=== PATIENT | male | born 1965 | race Hispanic/Latino ===

== ENCOUNTER 2017-01-17 08:54 | Inpatient (IN) | payer MEDICARE, OTHER ==
[~2017-01-17] VITALS: Ht 177.8 cm; Wt 94.9 kg
[2017-01-17] MEDS ORDERED: RT-ALBUTEROL/IPRATROPIUM 3 ML (DUONEB) VIAL INH ONE ×2 (09:00→10:00)
[2017-01-17] MEDS ORDERED: NS IV 1000 ML 1,000 ML IV ONE (09:04)
[2017-01-17 09:12] LABS: BASOPHILS % (AUTO) 0 % (0-10); EOSINOPHILS % (AUTO) 0 % (0-10); LYMPHOCYTES # (AUTO) 0.8 X 10^3 (1.0-4.0); LYMPHOCYTES % (AUTO) 7 % (12-44); MEAN CORPUSCULAR HEMOGLOBIN 27 PG (25-34); MEAN CORPUSCULAR HGB CONC 32 G/DL (32-36); MEAN CORPUSCULAR VOLUME 84 FL (80-99); MEAN PLATELET VOLUME 10.8 FL (7.4-10.4); MONOCYTES # (AUTO) 0.5 X 10^3 (0.0-1.0); MONOCYTES % (AUTO) 4 % (0-12); NEUTROPHILS # (AUTO) 9.7 X 10^3 (1.8-7.8); NEUTROPHILS % (AUTO) 89 % (42-75); PLATELET COUNT 275 10^3/uL (130-400); RED CELL DISTRIBUTION WIDTH 14.5 % (10.0-14.5)
[2017-01-17 09:35] LABS: BAND NEUTROPHILS 0 %; BASOPHILS % (MANUAL) 0 %; EOSINOPHILS % (MANUAL) 0 %; LYMPHOCYTES % (MANUAL) 5 %; NEUTROPHILS % (MANUAL) 89 %
--- NOTE | 2017-01-17 09:39 | ED General ---
General Chief Complaint: Respiratory Problems Stated Complaint: SOA Source of Information: Patient Exam Limitations: No Limitations History of Present Illness Time Seen by Provider: 08:56 Initial Comments This 51-year-old gentleman presents to the emergency room via EMS with complaints of worsening dyspnea over the past couple of days and hypoxia. His oxygen saturation was 84 percent on room air for EMS and improved to 96 percent on 4 L by nasal cannula. He reports having a nonproductive cough with some chills for the past 2 weeks along with fatigue. Shortness of breath started a few days ago and has worsened. EMS notes he was tachycardic with a heart rate over 100 and a respiratory rate of 22. Patient has nebulizer treatments at home but denies any history of asthma. He is status post lung transplant secondary to pulmonary hypertension. He takes antirejection medications. He denies any chest pain. Allergies and Home Medications Allergies Uncoded Allergies: Iodine contrast dye (Allergy, Unknown, 01/17/17) Constitutional: see HPI, chills EENTM: no symptoms reported Respiratory: see HPI Cardiovascular: see HPI Gastrointestinal: no symptoms reported Genitourinary: no symptoms reported Musculoskeletal: no symptoms reported Skin: no symptoms reported Psychiatric/Neurological: No Symptoms Reported Hematologic/Lymphatic: No Symptoms Reported Past Rbdzvrh-Wxhsof-Jvjolp Hx Surgeries HX Surgeries: Yes (bilateral lung transplant) Respiratory Hx Respiratory Disorders: No Cardiovascular Hx Cardiac Disorders: Yes (pulmonary hypertension status post lung transplant) Cardiac Disorders: Hypertension Neurological Hx Neurological Disorders: No Genitourinary Hx Genitourinary Disorders: No Gastrointestinal Hx Gastrointestinal Disorders: No Musculoskeletal Hx Musculoskeletal Disorders: No Endocrine Hx Endocrine Disorders: No HEENT HX ENT Disorders: No Cancer Hx Cancer: No Psychosocial Hx Psychiatric Problems: No Integumentary HX Skin/Integumentary Disorder: No Physical Exam Vital Signs Vital Sign - Last 12Hours 01/17/17 01/17/17 08:55 09:42 Temp 98.1 Pulse 109 Resp 27 B/P (MAP) 155/103 Pulse Ox 85 O2 Delivery Room Air O2 Flow Rate 3.00 Capillary Refill : General Appearance: No Apparent Distress, WD/WN HEENT: PERRL/EOMI, Normal ENT Inspection, Pharynx Normal Neck: Normal Inspection Respiratory: Lungs Clear, Normal Breath Sounds, Accessory Muscle Use, Other ( increased effort of breathing with expiratory phase. 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 Skin: Normal Color, Warm/Dry Focused Exam Lactic Acid Level Laboratory Tests Test 01/17/17 09:04 Lactic Acid Level 1.43 MMOL/L (0.50-2.00) Progress/Results/Core Measures Results/Orders Lab Results Laboratory Tests Test 01/17/17 09:04 Range/Units White Blood Count 11.0 4.3-11.0 10^3/uL Red Blood Count 6.30 H 4.35-5.85 10^6/uL Hemoglobin 17.0 13.3-17.7 G/DL Hematocrit 53 40-54 % Mean Corpuscular Volume 84 80-99 FL Mean Corpuscular Hemoglobin 27 25-34 PG Mean Corpuscular Hemoglobin Concent 32 32-36 G/DL Red Cell Distribution Width 14.5 10.0-14.5 % Platelet Count 275 130-400 10^3/uL Mean Platelet Volume 10.8 H 7.4-10.4 FL Neutrophils (%) (Auto) 89 H 42-75 % Lymphocytes (%) (Auto) 7 L 12-44 % Monocytes (%) (Auto) 4 0-12 % Eosinophils (%) (Auto) 0 0-10 % Basophils (%) (Auto) 0 0-10 % Neutrophils # (Auto) 9.7 H 1.8-7.8 X 10^3 Lymphocytes # (Auto) 0.8 L 1.0-4.0 X 10^3 Monocytes # (Auto) 0.5 0.0-1.0 X 10^3 Eosinophils # (Auto) 0.0 0.0-0.3 10^3/uL Basophils # (Auto) 0.0 0.0-0.1 10^3/uL Neutrophils % (Manual) 89 % Lymphocytes % (Manual) 5 % Monocytes % (Manual) 6 % Eosinophils % (Manual) 0 % Basophils % (Manual) 0 % Band Neutrophils 0 % Blood Morphology Comment NORMAL Sodium Level 138 135-145 MMOL/L Potassium Level 4.8 3.6-5.0 MMOL/L Chloride Level 102 98-107 MMOL/L Carbon Dioxide Level 24 21-32 MMOL/L Anion Gap 12 5-14 MMOL/L Blood Urea Nitrogen 18 7-18 MG/DL Creatinine 1.25 0.60-1.30 MG/DL Estimat Glomerular Filtration Rate 60 BUN/Creatinine Ratio 14 Glucose Level 131 H 70-105 MG/DL Lactic Acid Level 1.43 0.50-2.00 MMOL/L Calcium Level 9.8 8.5-10.1 MG/DL Magnesium Level 1.7 L 1.8-2.4 MG/DL Total Bilirubin 0.3 0.1-1.0 MG/DL Aspartate Amino Transf (AST/SGOT) 24 5-34 U/L Alanine Aminotransferase (ALT/SGPT) 30 0-55 U/L Alkaline Phosphatase 172 H 40-136 U/L Troponin I < 0.30 <0.30 NG/ML C-Reactive Protein High Sensitivity 3.63 H 0.00-0.50 MG/DL Total Protein 8.2 6.4-8.2 G/DL Albumin 4.0 3.2-4.5 G/DL Micro Results Microbiology 01/17/17 Influenza Types A,B Antigen (NAYAN) - Final, Complete My Orders Orders - CACHORRO NGO MD Chest Pa/Lat (2 View) (01/17/17 08:59) Cbc With Automated Diff (01/17/17 08:59) Comprehensive Metabolic Panel (01/17/17 08:59) Hs C Reactive Protein (01/17/17 08:59) Lactic Acid Analyzer (01/17/17 08:59) Magnesium (01/17/17 08:59) Troponin I (01/17/17 08:59) Blood Culture (01/17/17 08:59) Influenza A And B Antigens (01/17/17 08:59) Saline Lock/Iv-Start (01/17/17 08:59) Albuterol/Ipra Inhalation Soln (Duoneb I (01/17/17 09:00) Svn Sm Volume Nebulizer Rt-Rfs (01/17/17 08:59) Ns Iv 1000 Ml (Sodium Chloride 0.9%) (01/17/17 09:04) Manual Differential (01/17/17 09:04) Albuterol/Ipra Inhalation Soln (Duoneb I (01/17/17 10:00) Svn Sm Volume Nebulizer Rt-Rfs (01/17/17 09:56) Piperacillin Sodium/Tazobactam (Zosyn Vi (01/17/17 10:00) Medications Given in ED Current Medications Medications Dose Ordered Sig/Ghassan Route Start Time Stop Time Status Last Admin Dose Admin Albuterol/ Ipratropium 3 ml ONCE ONCE INH 01/17/17 09:00 01/17/17 09:04 DC 01/17/17 09:42 3 ML Albuterol/ Ipratropium 3 ml ONCE ONCE INH 01/17/17 10:00 01/17/17 10:01 DC 01/17/17 09:59 3 ML Piperacillin Sod/ Tazobactam Sod 4.5 gm/Sodium Chloride 100 ml @ 200 mls/hr ONCE ONCE IV 01/17/17 10:00 01/17/17 10:29 DC 01/17/17 10:16 200 MLS/HR Sodium Chloride 1,000 ml @ 0 mls/hr Q0M ONCE IV 01/17/17 09:04 01/17/17 09:05 DC 01/17/17 09:15 0 MLS/HR Vital Signs/I&O Vital Sign - Last 12Hours 01/17/17 01/17/17 01/17/17 08:55 09:42 09:59 Temp 98.1 Pulse 109 Resp 27 B/P (MAP) 155/103 Pulse Ox 85 96 96 O2 Delivery Room Air O2 Flow Rate 3.00 3.00 Progress Note : Time: 10:13 Progress Note Patient was found to have some interstitial perihilar lung markings suspicious for infectious etiology, viral more likely than bacterial. Patient is at high risk with his immunocompromised state and antibiotics were therefore initiated. Zosyn was selected as initial therapy. Patient still had some delayed expiration after initial DuoNeb treatment. A second DuoNeb treatment was administered. Influenza screen is still pending. ECG Initial ECG Impression Date: Jan 17, 2017 Initial ECG Impression Time: 08:59 Initial ECG Rate: 114 Initial ECG Rhythm: S.Tach Initial ECG Intervals: Normal Initial ECG Impression: Normal Comment Sinus tachycardia with nonspecific T-wave changes. No ST elevation or depression. No abnormal intervals or axis deviation. Diagnostic Imaging Diagonstic Imaging: Xray Plain Films/CT/US/NM/MRI: chest Comments Chest x-ray viewed by me and report reviewed. See report below: NAME: SHEMAR SERNA [facility] REC#: [id number] PT STATUS: REG ER : 1965 PHYSICIAN: CACHORRO NGO MD ADMIT DATE: 01/17/17/ER Draft Date of Exam:01/17/17 CHEST PA/LAT (2 VIEW) INDICATION: Shortness of breath, worsening in severity. History of lung transplant. FINDINGS: Sternal wires midline. Lung volumes symmetric. There is some thickening of the central airways greater right than left which may reflect an element of bronchitis or viral inflammation. No airspace or alveolar consolidation. No effusion or pneumothorax. No free air beneath the diaphragms. IMPRESSION: Right greater than left perihilar interstitial and airway thickening. No alveolar consolidation, pleural fluid, or pneumothorax. No failure pattern. Dictated on workstation # [id number] Dict: 01/17/1738 Trans: 01/17/17 0940 [id number] Interpreted by: AMA BUSTAMANTE Departure Communication Time/Spoke to Admitting Phy: 10:25 Communication Case reviewed with Dr. Lizarraga. She is agreeable to admission for treatment of pneumonia and requests a consultation with Dr. Gauthier. Time/Spoke to Consulting Physi: 10:30 Communication/Consulting Case was reviewed with Dr. Gauthier. He is agreeable to consultation. He agrees with admission and treatment for suspected pneumonia and sepsis. He suggests Zosyn and vancomycin as initial antibiotic therapy as patient is immunosuppressed. He does not feel steroids are necessary at this time as patient had a reasonable response to nebulizer treatments. Impression Impression: Primary Impression: Sepsis Qualified Codes: A41.9 - Sepsis, unspecified organism Additional Impressions: Pneumonia Qualified Codes: J18.1 - Lobar pneumonia, unspecified organism Respiratory failure Qualified Codes: J96.01 - Acute respiratory failure with hypoxia Bronchospasm Disposition: ADMITTED INPATIENT Condition: Improved Decision to Admit Reason: Admit from ER (General) Decision to Admit/Date: Jan 17, 2017 Time/Decision to Admit Time: 09: CACHORRO NGO MD Jan 17, 2017 09:39
[2017-01-17 09:40] LABS: ALANINE AMINOTRANSFERASE 30 U/L (0-55); ANION GAP 12 MMOL/L (5-14); ASPARTATE AMINO TRANSFERASE 24 U/L (5-34); BILIRUBIN,TOTAL 0.3 MG/DL (0.1-1.0); BLOOD UREA NITROGEN 18 MG/DL (7-18); BUN/CREATININE RATIO 14; CALCIUM 9.8 MG/DL (8.5-10.1); CARBON DIOXIDE 24 MMOL/L (21-32); CHLORIDE 102 MMOL/L (98-107); CREATININE SERUM 1.25 MG/DL (0.60-1.30); GFR ESTIMATED 60; GLUCOSE 131 MG/DL (70-105); MAGNESIUM 1.7 MG/DL (1.8-2.4); POTASSIUM 4.8 MMOL/L (3.6-5.0); SODIUM 138 MMOL/L (135-145); TOTAL PROTEIN 8.2 G/DL (6.4-8.2); hs C REACTIVE PROTEIN 3.63 MG/DL (0.00-0.50)
[2017-01-17 09:45] LABS: TROPONIN I < 0.30 NG/ML (<0.30)
[2017-01-17] MEDS ORDERED: PIPERACILLIN SODIUM/TAZOBACTAM 4.5 GM in NS (IVPB) 100 ML IV ONE (10:00)
[2017-01-17] MEDS ORDERED: LABE200T3 PO (11:05)
[2017-01-17] MEDS ORDERED: ASPI-983 PO (11:05)
[2017-01-17] MEDS ORDERED: FURO40TA4 PO (11:05)
[2017-01-17] MEDS ORDERED: MAGN400T6 PO (11:05)
[2017-01-17] MEDS ORDERED: TACR0.5C6 PO (11:05)
[2017-01-17] MEDS ORDERED: FLDR.1T PO (11:05)
[2017-01-17] MEDS ORDERED: PRED5TAB PO (11:05)
[2017-01-17] MEDS ORDERED: TACR0.5C PO (11:05)
[2017-01-17] MEDS ORDERED: SULF-222 PO (11:05)
[2017-01-17] MEDS ORDERED: ESOM40CA52 PO (11:05)
[2017-01-17] MEDS ORDERED: FOLI1TAB24 PO (11:05)
[2017-01-17] MEDS ORDERED: VORI200T10 PO (11:05)
[2017-01-17] MEDS ORDERED: AMLO5TAB2 PO (11:05)
[2017-01-17] MEDS ORDERED: CLON0.1T PO (11:05)
[2017-01-17] MEDS ORDERED: MULT-35 PO (11:06)
[2017-01-17] MEDS ORDERED: GABA-486 PO (11:06)
[2017-01-17] MEDS ORDERED: METO50TA2 PO (11:06)
--- NOTE | 2017-01-17 11:25 | History & Physical-Hospitalist ---
HPI History of Present Illness: HPI/Chief Complaint CC: Dyspnea w/fever HPI: This is a 51-year-old -[place] male of [facility] with a past medical history of bilateral lung transplants in [place] that was last seen by that surgeon in September 2016 with pulmonary function tests that appear to be slightly abnormal that presents to the ER with shortness of breath and fever for past 2 days. He is found to have a possible viral pneumonia versus bacterial Early pneumonia on chest x-ray and his overall clinical status requiring admission to the hospital for close monitoring and pulmonary consultation. Chart Review: Neutrophil 9.7, CRP 3.6, X-ray may be viral but pt had cultures and placed on Zosyn. In [place] pt states he had pulmonary tests that were concerning? Pt has viral or bacterial pneumonia so will place on abx and monitor closely Scribed by Teodoro Young under the direct supervision of Dr. Lizarraga. Patient feels much better since placing oxygen on and denies any sig cough. Source: patient, RN/MD Date Seen 01/17/17 Attending Physician Monse Lizarraga Michele R Aprn Referring Physician Date of Admission Jan 17, 2017 at 10:46 Home Medications & Allergies Home Medications Reviewed patient Home Medication Reconciliation Form Allergies Allergies Uncoded Allergies Iodine contrast dye ( Allergy, Unknown, 01/17/17) Past Genhipo-Ogktjt-Keetjm Hx Patient Social History Marrital Status: single Employed/Student: unemployed Alcohol Use: Denies Use Recreational Drug Use: No Smoking Status: Never a Smoker 2nd Hand Smoke Exposure: No Recent Foreign Travel: No Contact w/other who traveled: No Recent Hopitalizations: No Recent Infectious Disease Expo: No Seasonal Allergies Seasonal Allergies: No Surgeries HX Surgeries: Yes (bilateral lung transplant) Surgeries: Lobectomy (lung transplant) Respiratory Hx Respiratory Disorders: Yes Respiratory Disorders: Asthma Cardiovascular Hx Cardiovascular Disorders: Yes (pulmonary hypertension status post lung transplant) Cardiac Disorders: Hypertension Neurological Hx Neurological Disorders: No Genitourinary Hx Genitourinary Disorders: No Gastrointestinal Hx Gastrointestinal Disorders: No Musculoskeletal Hx Musculoskeletal Disorders: No Endocrine Hx Endocrine Disorders: No HEENT HX ENT Disorders: No Cancer Hx Cancer: No Psychosocial Hx Psychiatric Problems: No Integumentary HX Skin/Integumentary Disorder: No Blood Transfusions Hx Blood Disorders: No Review of Systems Constitutional: see HPI, dizziness, fever, weakness EENTM: no symptoms reported Respiratory: cough, short of breath, wheezing Cardiovascular: no symptoms reported Gastrointestinal: no symptoms reported Genitourinary: no symptoms reported Musculoskeletal: no symptoms reported Skin: no symptoms reported Psychiatric/Neurological: No Symptoms Reported All Other Systems Reviewed Negative Unless Noted: Yes Physical Exam Physical Exam Vital Signs Vital Sign - Last 12Hours 01/17/17 01/17/17 08:55 09:42 Temp 98.1 Pulse 109 Resp 27 B/P (MAP) 155/103 Pulse Ox 85 O2 Delivery Room Air O2 Flow Rate 3.00 Capillary Refill : Less Than 3 Seconds General Appearance: No Apparent Distress, WD/WN Eyes: Bilateral Eye Normal Inspection, Bilateral Eye PERRL HEENT: PERRL/EOMI, Normal ENT Inspection, Pharynx Normal Neck: Full Range of Motion, Normal Inspection, Non Tender, Supple, Carotid Bruit Respiratory: Chest Non Tender, Lungs Clear, No Accessory Muscle Use, No Respiratory Distress, Decreased Breath Sounds Cardiovascular: Regular Rate, Rhythm, No Edema, No Gallop, No JVD, No Murmur, Normal Peripheral Pulses Gastrointestinal: Normal Bowel Sounds, No Organomegaly, No Pulsatile Mass, Non Tender, Soft Back: Normal Inspection, No CVA Tenderness, No Vertebral Tenderness Extremity: Normal Capillary Refill, Normal Inspection, Normal Range of Motion, Non Tender, No Calf Tenderness, No Pedal Edema Neurologic/Psychiatric: Alert, Oriented x3, No Motor/Sensory Deficits, Normal Mood/Affect Skin: Normal Color, Warm/Dry Lymphatic: No Adenopathy Results Results/Procedures Lab Laboratory Tests 01/17/17 09:04 Assessment/Plan Admission Diagnosis assessment: Early pneumonia either viral versus bacterial covering with antibiotics of Bryan due to immunosuppression Bilateral lung transplant Asthma? Hypoxia Hypertension Assessment and Plan Plan: Bryan Shepard Pulmonary consultation Reconcile all home meds and held immunosuppressive medication for today Check labs and chest x-ray tomorrow and likely will discharge MONSE LIZARRAGA DO Jan 17, 2017 11:25
[2017-01-17 11:30] VITALS: BP 143/85
[2017-01-17] MEDS ORDERED: VANCOMYCIN 2000 MG/NS 500 ML IVPB IV SCH ×2 (12:00)
[2017-01-17] MEDS: NS IV 1000 ML 1,000 ML IV SCH (12:26)
[2017-01-17] MEDS: cloNIDine 0.1 MG (CATAPRES) TAB PO SCH ×2 (14:25→20:31)
[2017-01-17] MEDS: FLUDROCORTISONE 0.1 MG (FLORINEF) TAB PO SCH (14:26)
[2017-01-17] MEDS: TRIM/SULFAMETH 160/800 (SEPTRA DS) TAB PO SCH (14:26)
[2017-01-17 15:20] VITALS: BP 132/81
[2017-01-17] MEDS ORDERED: RT-ALBUTEROL/IPRATROPIUM 3 ML (DUONEB) VIAL INH PRN (16:00)
[2017-01-17] MEDS: PIPERACILLIN/TAZOBACTAM 4.5 GM/NS 100 ML IVPB IV SCH ×2 (16:42)
[2017-01-17] MEDS: VORICONAZOLE 200 MG TAB (VFEND) NON-FORMULARY PO SCH ×2 (16:42→23:06)
[2017-01-17] MEDS: RT-ALBUTEROL/IPRATROPIUM 3 ML (DUONEB) VIAL INH SCH ×2 (18:54→22:24)
[2017-01-17 19:25] VITALS: BP 131/82
[2017-01-17] MEDS: FUROSEMIDE 40 MG (LASIX) TAB PO SCH (20:31)
[2017-01-17] MEDS: GABAPENTIN 100 MG (NEURONTIN) CAP PO SCH (20:31)
[2017-01-17] MEDS: meTOprolol TARTRATE 50 MG (LOPRESSOR) TAB PO SCH (20:31)
[2017-01-17] MEDS: MAGNESIUM OXIDE (MAG-OX)400 MG TAB PO SCH (20:31)
[2017-01-17 23:59] VITALS: BP 110/78
[2017-01-18] MEDS ORDERED: VANCOMYCIN 1500 MG/NS 500 ML IVPB IV SCH ×2
[2017-01-18] MEDS: PIPERACILLIN/TAZOBACTAM 4.5 GM/NS 100 ML IVPB IV SCH ×6 (01:02→16:35)
[2017-01-18] MEDS: RT-ALBUTEROL/IPRATROPIUM 3 ML (DUONEB) VIAL INH SCH ×6 (02:03→22:12)
[2017-01-18 03:54] VITALS: BP 123/82
[2017-01-18 05:03] LABS: BASOPHILS # (AUTO) 0.1 10^3/uL (0.0-0.1); BASOPHILS % (AUTO) 1 % (0-10); EOSINOPHILS # (AUTO) 0.4 10^3/uL (0.0-0.3); EOSINOPHILS % (AUTO) 5 % (0-10); LYMPHOCYTES # (AUTO) 1.7 X 10^3 (1.0-4.0); LYMPHOCYTES % (AUTO) 20 % (12-44); MEAN CORPUSCULAR HEMOGLOBIN 27 PG (25-34); MEAN CORPUSCULAR HGB CONC 32 G/DL (32-36); MEAN CORPUSCULAR VOLUME 87 FL (80-99); MEAN PLATELET VOLUME 10.6 FL (7.4-10.4); MONOCYTES # (AUTO) 0.9 X 10^3 (0.0-1.0); MONOCYTES % (AUTO) 11 % (0-12); NEUTROPHILS # (AUTO) 5.1 X 10^3 (1.8-7.8); NEUTROPHILS % (AUTO) 63 % (42-75); PLATELET COUNT 239 10^3/uL (130-400); RED BLOOD COUNT 5.57 10^6/uL (4.35-5.85); RED CELL DISTRIBUTION WIDTH 14.9 % (10.0-14.5); WHITE BLOOD COUNT 8.2 10^3/uL (4.3-11.0)
[2017-01-18 05:25] LABS: ALBUMIN 3.3 G/DL (3.2-4.5); BILIRUBIN,TOTAL 0.3 MG/DL (0.1-1.0); CALCIUM 8.9 MG/DL (8.5-10.1); CREATININE SERUM 1.26 MG/DL (0.60-1.30); POTASSIUM 4.6 MMOL/L (3.6-5.0); TOTAL PROTEIN 6.6 G/DL (6.4-8.2)
[2017-01-18] MEDS: NS IV 1000 ML 1,000 ML IV SCH ×2 (06:22→07:58)
[2017-01-18] MEDS: MULTIVIT W/MINERALS TAB (THERAGRAN M) PO SCH (06:22)
[2017-01-18] MEDS: PANTOPRAZOLE 40 MG (PROTONIX) TAB PO SCH (06:22)
--- NOTE | 2017-01-18 06:54 | Pulmonary Consultation ---
History of Present Illness History of Present Illness Date of Consultation 01/18/17 06:49 Date of Admission History of Present Illness 51yo AAM with hx of bilateral lung transplant presented to ED secondary to worsening fever over the last 2-3 days. CXR shows bilateral infiltration. He was placed on zosyn and admitted to 4th floor. I am consulted for pulmonary management. Allergies and Home Medications Allergies Coded Allergies: Iodinated Contrast Media - Oral and (Unverified Allergy, Unknown, 01/17/17) Home Medications Amlodipine Besylate 5 Mg Tablet, 5 MG PO DAILY, (Reported) Aspirin 81 Mg Tablet.dr, 81 MG PO DAILY, (Reported) Clonidine HCl 0.1 Mg Tablet, 0.1 MG PO TID, (Reported) LAST FILLED #270 08-25-16 Esomeprazole Magnesium 40 Mg Capsule.dr, 40 MG PO DAILY, (Reported) Fludrocortisone Acetate 0.1 Mg Tab, 0.1 MG PO MoWeFr, (Reported) Folic Acid 1 Mg Tablet, 1 MG PO DAILY, (Reported) Furosemide 40 Mg Tablet, 40 MG PO BID, (Reported) LAST FILLED #180 08-25-16 Gabapentin 100 Mg Capsule, 100 MG PO BID, (Reported) Labetalol HCl 200 Mg Tablet, 200 MG PO BID, (Reported) Magnesium Oxide 400 Mg Tablet, 400 MG PO BID, (Reported) LAST FILLED #180 08-25-16 Metoprolol Tartrate 50 Mg Tablet, 50 MG PO BID, (Reported) LAST FILLED 08-25-16 #180 Multivitamin 1 Each Tablet, 1 TAB PO DAILY, (Reported) Prednisone 5 Mg Tablet, 5 MG PO DAILY, (Reported) Sulfamethoxazole/Trimethoprim 1 Each Tablet, 1 TAB PO MoWeFr, (Reported) Tacrolimus 0.5 Mg Capsule, 1 MG PO DAILY, (Reported) TAKES 2 (0.5MG) CAPSULES IN THE MORNING Tacrolimus 0.5 Mg Capsule, 0.5 MG PO HS, (Reported) Voriconazole 200 Mg Tablet, 200 MG PO BID, (Reported) LAST FILLED #60 11-30-16 Past Hptbxxp-Vmtckm-Tqjtgu Hx Patient Social History Alcohol Use: Denies Use Recreational Drug Use: No Smoking Status: Never a Smoker 2nd Hand Smoke Exposure: No Recent Foreign Travel: No Contact w/Someone Who Travel: No Recent Infectious Disease Expo: No Recent Hopitalizations: No Physical Abuse Screen: No Sexual Abuse: No Immunizations Up To Date Date of Pneumonia Vaccine: Sep 18, 2014 Seasonal Allergies Seasonal Allergies: No Surgeries HX Surgeries: Yes (bilateral lung transplant) Surgeries: Lobectomy (lung transplant) Respiratory Hx Respiratory Disorders: Yes Respiratory Disorders: Pneumonia Cardiovascular Hx Cardiac Disorders: Yes (pulmonary hypertension status post lung transplant) Cardiac Disorders: Hypertension Neurological Hx Neurological Disorders: No Reproductive System Sexually Transmitted Disease: No HIV/AIDS: No Genitourinary Hx Genitourinary Disorders: No Gastrointestinal Hx Gastrointestinal Disorders: No Gastrointestinal Disorders: Gastroesophageal Reflux Musculoskeletal Hx Musculoskeletal Disorders: No Endocrine Hx Endocrine Disorders: No HEENT HX ENT Disorders: No Loss of Vision: Denies Hearing Impairment: Denies Cancer Hx Cancer: No Psychosocial Hx Psychiatric Problems: No Integumentary HX Skin/Integumentary Disorder: No Blood Transfusions Hx Blood Disorders: No Family Medical History Family Medial History: Asthma 19 MOTHER Diabetes mellitus 19 FATHER Hypercholesterolemia 19 FATHER 19 MOTHER G8 BROTHER G8 SISTER Hypertension 19 FATHER 19 MOTHER G8 BROTHER G8 SISTER Thyroid disease G8 SISTER Review of Systems Constitutional: Malaise, Weakness, No: Chills, Fever, Other, Sweats Eyes: No: Conjunctivae inflammation, Eyelid inflammation, Other, Pain, Redness , Vision change Respiratory: Cough, SOB with excertion, Shortness of breath Cardiovascular: No: Chest Pain, Edema, Lt Headedness, Orthopnea, Other, Palpitations, Paroxysmal Noc. Dyspnea Gastrointestinal: No: Abdominal Pain, Constipation, Diarrhea, Hematochezia, Melena, Nausea, Other, Vomiting Neurological: Weakness Exam Exam Vital Signs Date Time Temp Pulse Resp B/P (MAP) Pulse Ox O2 Delivery O2 Flow Rate FiO2 01/18/17 03:54 97.2 85 16 123/82 97 Nasal Cannula 2.00 01/18/17 02:03 94 2.00 01/18/17 01:00 79 01/17/17 23:59 96.5 82 12 110/78 97 Nasal Cannula 2.00 01/17/17 22:24 94 2.00 01/17/17 21:00 Nasal Cannula 2.50 01/17/17 19:25 96.2 89 20 131/82 95 Nasal Cannula 2.00 01/17/17 19:00 94 01/17/17 18:54 95 2.00 01/17/17 15:20 97.5 97 18 132/81 93 Nasal Cannula 3.00 01/17/17 14:00 94 01/17/17 13:00 3.00 01/17/17 11:31 97.6 104 20 99 3.00 01/17/17 11:30 97.3 98 24 143/85 93 Nasal Cannula 3.00 01/17/17 09:59 96 3.00 01/17/17 09:42 96 3.00 01/17/17 08:55 98.1 109 27 155/103 85 Room Air I & O 01/18/17 07:00 Intake Total 3725 ml Output Total 3325 ml Balance 400 ml General Appearance: No Apparent Distress, WD/WN HEENT: PERRL/EOMI, Normal ENT Inspection, Pharynx Normal Neck: Full Range of Motion, Normal Inspection, Non Tender, Supple, Carotid Bruit Respiratory: Chest Non Tender, Lungs Clear, No Accessory Muscle Use, No Respiratory Distress, Decreased Breath Sounds Cardiovascular: Regular Rate, Rhythm, No Edema, No Gallop, No JVD, No Murmur, Normal Peripheral Pulses Capillary Refill: Less Than 3 Seconds Extremity: Normal Capillary Refill, Normal Inspection, Normal Range of Motion, Non Tender, No Calf Tenderness, No Pedal Edema Neurologic/Psychiatric: Alert, Oriented x3, No Motor/Sensory Deficits, Normal Mood/Affect Skin: Normal Color, Warm/Dry Lymphatic: No Adenopathy Results Lab Laboratory Tests 01/17/17 09:04 01/18/17 04:38 Assessment/Plan Assessment/Plan PNeumonia with immunosuppression -Continue Zosyn vanco for now -await gan cultures hx of lung transplant Clinical Quality Measures DVT/VTE Risk/Contraindication: Risk Factor Score Per Nursin RFS Level Per Nursing on Admit: 4+=Very High RUSTAM HOPE DO Jan 18, 2017 06:54
--- NOTE | 2017-01-18 07:33 | Diagnostic Imaging Report ---
CLINICAL INDICATION: Patient with shortness of air and pneumonia. EXAM: Chest x-ray PA and lateral views. COMPARISONS: Chest x-ray dated 02/06/2017 at 0941 hrs. FINDINGS: There is stable increased lung markings in the bilateral perihilar regions which may represent atelectasis versus infiltrate. There is no pleural effusion or pneumothorax. Stable elevation right hemidiaphragm. There is diffuse sclerotic bone densities seen throughout the visualized axial skeleton. Old healed fracture deformity of the lateral right T8 rib is suspected. Pulmonary vasculature and cardiac silhouette is within normal limits. Stable postop changes to the chest. The remainder of this exam shows no significant interval change compared to the prior study of comparison. IMPRESSION: 1: Stable mild atelectasis versus infiltrate in the bilateral perihilar regions. 2: There is diffuse bony sclerosis of the visualized axial skeleton. These findings may be seen with diffuse osseous metastatic disease, hyperparathyroidism, or osteopetrosis. Clinical correlation is suggested. Dictated by: Dictated on workstation # [id number]
[2017-01-18 08:00] VITALS: BP 134/87
[2017-01-18] MEDS: FOLIC ACID 1 MG TAB PO SCH (08:02)
[2017-01-18] MEDS: FUROSEMIDE 40 MG (LASIX) TAB PO SCH ×2 (08:02→20:02)
[2017-01-18] MEDS: GABAPENTIN 100 MG (NEURONTIN) CAP PO SCH ×2 (08:02→20:02)
[2017-01-18] MEDS: VORICONAZOLE 200 MG TAB (VFEND) NON-FORMULARY PO SCH ×2 (08:02→20:02)
[2017-01-18] MEDS: meTOprolol TARTRATE 50 MG (LOPRESSOR) TAB PO SCH ×2 (08:02→20:02)
[2017-01-18] MEDS: amLODIPine 5 MG (NORVASC) TAB PO SCH (08:02)
[2017-01-18] MEDS: MAGNESIUM OXIDE (MAG-OX)400 MG TAB PO SCH ×2 (08:03→20:02)
[2017-01-18] MEDS: ASPIRIN E.C. 81 MG (ECOTRIN) TAB PO SCH (08:03)
[2017-01-18] MEDS: predniSONE 5 MG TAB PO SCH (08:03)
[2017-01-18] MEDS: cloNIDine 0.1 MG (CATAPRES) TAB PO SCH ×3 (08:07→20:02)
--- NOTE | 2017-01-18 10:22 | Progress Note-Hospitalist ---
Progress Note HPI/CC on Admission CC: Dyspnea w/fever HPI: This is a 51-year-old -[place] male of [facility] with a past medical history of bilateral lung transplants in [place] that was last seen by that surgeon in September 2016 with pulmonary function tests that appear to be slightly abnormal that presents to the ER with shortness of breath and fever for past 2 days. He is found to have a possible viral pneumonia versus bacterial Early pneumonia on chest x-ray and his overall clinical status requiring admission to the hospital for close monitoring and pulmonary consultation. Chart Review: Neutrophil 9.7, CRP 3.6, X-ray may be viral but pt had cultures and placed on Zosyn. In [place] pt states he had pulmonary tests that were concerning? Pt has viral or bacterial pneumonia so will place on abx and monitor closely Scribed by Teodoro Young under the direct supervision of Dr. Lizarraga. Patient feels much better since placing oxygen on and denies any sig cough. Progress Notes/Assess & Plan Date Seen 01/18/17 Admission Dx/Process Assessment: Early pneumonia either viral versus bacterial covering with antibiotics of Zosyn due to immunosuppression Bilateral lung transplant Asthma? Hypoxia Hypertension Diagonsis/Assessment & Plan Chart Review: No fever, Vitals stable, WBC normal 8.2 CMP normal, Repeat CXR B/ L atelectasis in perihilar region. Pharmacy Review: Pt was a soft admission. Patient Interview: Pt states he does not want to be DC today. Pt states the medication is helping him. Pt states he does not have home O2. Pt will be tested for home O2. Pt states he is wanting to stay at hospital and he knows he has something wrong with him. Pt states he does not want to go home and then come back to [facility] the next day. Pt states he is getting green discharge. Physical exam was stable. Pt states he has ate solid food today for the first time in 5 days. Pt states another doctor told him he needs to stay 2 more days. Scribed by Teodoro Young under the direct supervision of Dr. Lizarraga. No fever, vital signs stable, pleasant, improved, wearing O2 Regular rate and rhythm, clear to auscultation bilaterally but diminished in the bases but much improved no wheezing is noted No edema and normal range of motion Laboratory Tests 01/18/17 04:38 Assessment: Early pneumonia bilateral bases Bilateral lung transplant 6 yrs ago Asthma Hypoxia now requiring 6liters of O2 for home use continuously Hypertension Plan: Bryan Shepard Pulmonary consultation appreciated Check labs and chest x-ray tomorrow and likely will discharge Home O2 orders placed ROMY LIZARRAGA DO Jan 18, 2017 10:22
[2017-01-18] MEDS ORDERED: TROUGH ORDER-PHARMACY XX NR (11:00)
--- NOTE | 2017-01-18 11:23 | Physical Therapy Evaluation ---
PT Evaluation-General Medical Diagnosis Admission Date Jan 17, 2017 at 10:46 Medical Diagnosis: sepsis/pneumonia Onset Date: Jan 17, 2017 Therapy Diagnosis Therapy Diagnosis: debility Height/Weight Height (Feet): 5 Height (Inches): 10.00 Weight (Pounds): 209 Weight (Ounces): 3.0 Precautions Precautions/Isolations: Standard Precautions Referral Physician: Zia Reason for Referral: Evaluation/Treatment Medical History Pertinent Medical History: HTN Additional Medical History pulmonary HTN with bilateral lung transplant x 6 yrs Current History 2 wks of increase cough with dyspnea and hypoxia SAO2 84% on RA with EMS with increase to 96% on 4L Reviewed History: Yes Social History Home: Single Level Current Living Status: Spouse Prior/Core FIM Prior Level of Function Functional [place] Measure 0=Not Assessed/NA 4=Minimal Assistance 1=Total Assistance 5=Supervision or Setup 2=Maximal Assistance 6=Modified [place] 3=Moderate Assistance 7=Complete [place] Bed Mobility: 7 Transfers (B,C,W/C) (FIM): 7 Gait: 7 Locomotion: 7 PT Evaluation-Current Subjective Patient agrees to PT. Pain Numeric Pain Scale: 0-No Pain Location: No Pain Reported Objective Patient Orientation: Normal For Age Problem Solving: Good Attachments: Oxygen (3L HF NC), IV ROM/Strength ROM Lower Extremities bilateral LE WFL Strenght Lower Extremities bilateral LE WFL Integumentary/Posture Integumentary grossly intact Bowel Incontinence: No Bladder Incontinence: No Posture WNL Neuromuscular (Tone, Coordination, Reflexes) grossly intact Sensory Vision: Functional Hearing: Functional Sensation Right Lower Extremit: Intact Sensation Left Lower Extremity: Intact Transfers Functional [place] Measure 0=Not Assessed/NA 4=Minimal Assistance 1=Total Assistance 5=Supervision or Setup 2=Maximal Assistance 6=Modified [place] 3=Moderate Assistance 7=Complete [place] Transfers (B, C, W/C) (FIM): 7 Scootin Rollin Supine to/from Sit: 7 Sit to/from Stand: 7 Gait Mode of Locomotion: Walk Anticipated Mode of Locomotion: Walk Gait (FIM): 7 Distance (FIM): 3=150 ft Distance: 400' Gait Level of Assist: 7 Gait Assistive Device: None Comments/Gait Description safe and functional with O2 3L NC HF per RT Balance Sitting Static: Normal Sitting Dynamic: Normal Standing Static: Normal Standing Dynamic: Normal Assessment/Needs 51 y.o. male, is currently at [facility] with all gross motor skills and does not require skilled PT at this time. Education with patient on use of O2 tank to ambulate PRN in hallway given with patient demonstrating good knowledge of use. Dr. Lizarraga notified of findings. Rehab Potential: Good PT Plan Treatment/Plan Treatment Plan: Discontinue PT, goals met Pt/Family Agrees w/Plan: Yes Safety Risks/Education Patient Education: Safety Issues (O2 tank/regulator use) Teaching Recipient: Patient Teaching Methods: Demonstration, Discussion Response to Teaching: Verbalize Understanding, Return Demonstration Discharge Recommendations Therapy D/C Recommendations: Home w/ Family Support Time/GCodes Time In: 1050 Time Out: 1110 Total Billed Treatment Time: 20 Total Billed Treatment 1 visit EVModC 20 min G Codes Necessary: No RONALD GASPAR PT Jan 18, 2017 11:23
[2017-01-18 12:00] VITALS: BP 112/71
--- NOTE | 2017-01-18 12:25 | Occupational Therapy Eval ---
OT Evaluation-General/PLF Medical Diagnosis Admission Date Jan 17, 2017 at 10:46 Medical Diagnosis: sepsis/pneumonia Onset Date: Jan 17, 2017 Therapy Diagnosis Therapy Diagnosis: debility Height/Weight Height (Feet): 5 Height (Inches): 10.00 Weight (Pounds): 209 Weight (Ounces): 3.0 Precautions Precautions/Isolations: Standard Precautions Safety Interventions: Reorient-PRN Referral Physician: Zia Medical History Pertinent Medical History: HTN Additional Medical History bilateral lung transplant, pulmonary hypertension Reviewed History: Yes Social History Home: Single Level Current Living Status: Spouse Entry Into Home: Stairs With Railing Steps Into Home: 5 ADL-Prior Level of Function ADL PLOF Comments Pt reports being independent with ADLs and mobility. DME/Equipment: Tub/Shower OT Current Status Subjective Pt in bed, agrees to treatment. Pt has no c/o pain. States he is feeling better today. Mental Status/Objective Patient Orientation: Person, Place, Situation Attachments: IV Current Upper Extremity ROM Grossly WFL Upper Extremity Coordination Intact Upper Extremity Sensation Intact per pt report. Upper Extremity Strength Grossly WFL ADL-Treatment ADL-Current Pt supine to sit independently. Pt participated in UE assessment while seated EOB. Pt sit to stand independently. Pt demonstrated ability to safely perform transfer without assistance or AD. Pt states he was able to complete LE dressing without assistance. Pt states he is not having any difficulty with ADLs or transfers at this time. Pt declined to shower, states he will complete later when his gets here. Pt denied questions or concerns. Pt in bed with needs met after session. Functional [place] Measure 0=Not Assessed/NA 4=Minimal Assistance 1=Total Assistance 5=Supervision or Setup 2=Maximal Assistance 6=Modified [place] 3=Moderate Assistance 7=Complete IndependenceIRFPAI Quality Coding Scale 6 Independent with activity with or without an assistive device 5 Patient requires set up or clean up by helper. Patient completes activity by themselves 4 Supervision or touching assist (CGA). [place] provide cues , steadying assist 3 The helper provides less than half the effort to complete the activity 2 The helper provides more than half the effort to complete the activity 1 Dependent. The helper does all the effort to complete an activity 7 Patient refused to complete or attempt activity 9 The patient did not perform the activity before the current illness or injury 88 Not attempted due to Medical conditions or safety concerns Eating (FIM): 7 (By pt report) Lower Body Dressing (FIM): 6 Transfers (B, C, W/C) (FIM): 7 OT Education/Plan Problem List/Assessment Assessment: No Skilled OT Needs ID'd Pt admitted secondary to pneumonia/sepsis. Pt demonstrates functional strength and is able to complete ADLs and transfer without assistance. Pt has no questions or concerns regarding ADLs or home safety. No further skilled OT intervention indicated at this time. D/c OT Discharge Recommendations Plan/Recommendations: Discontinue OT Treatment Plan/Plan of Care Treatment,Training & Education: No Rehab Potential: Good Time/GCodes Start Time: 11:40 Stop Time: 11:55 Total Time Billed (hr/min): 15 Billed Treatment Time 1 visit, HAYES(15minutes) LUZ HEATON OT Jan 18, 2017 12:25
--- NOTE | 2017-01-18 14:04 | Physician Query ---
PQ-Uncertain Diagnosis Admission/Discharge Admission Date: Jan 17, 2017 at 10:46 Discharge Date: The medical record reflects the following clinical scenario: History/Risk Factors: Pneumonia Bilateral lung transplants Clinical Findings: T98.1,pulse 109, Resp 27,BP 155/103 O2 sats 85%, WBC11.0, lactic acid 1.43. Per Dr. Carlos, "patient was diagnosed with sepsis because of 2 SIRS criteria with respiratory failure (resp rate of 22 with hypoxia) and tachycardia along with source of infection." Treatment: IV Zosyn and IV Vancomycin Question: Is Sepsis a clinically valid diagnosis? Sepsis was documented in the 01/17 ED record with no further documentation in the medical record. Please document a response below. PHYSICIAN RESPONSE Diagnosis clinically valid: Yes, Conditon resolved Please remember a lack of response to the above will prompt a phone page by CDI/ coding staff. In responding to this query, please exercise your independent professional judgment. The purpose of this communication is to more accurately reflect the complexity of your patients condition. The fact that a question is asked does not imply that any particular answer is desired or expected. Thank you for your timely response to this clarification. Requestors name: Dulce Cox [facility] Phone # ext [phone] or [phone] THIS PHYSICIAN QUERY FORM IS A PERMANENT PART OF THE MEDICAL RECORD DULCE COX Jan 18, 2017 14:04 ROMY SOUZA DO Jan 18, 2017 14:29
--- NOTE | 2017-01-18 14:17 | Physician Query ---
PQ-Uncertain Diagnosis Admission/Discharge Admission Date: Jan 17, 2017 at 10:46 Discharge Date: The medical record reflects the following clinical scenario: History/Risk Factors: Pneumonia Bilateral lung transplants Clinical Findings: Accessory muscle use, tachypnea, resp 27, 02 sats 85% Treatment: 2 DuoNeb treatments were administered Nasal cannula 02 flow 3.00 liters Question: Is Acute respiratory failure with hypoxia a clinically valid diagnosis? Acute respiratory failure with hypoxia was documented in the 01/[address] Carlos with no further documentation in the medical record. Please document a response below. If agree with diagnosis of acute respiratory failure with hypoxia, please clarify if it was or was not related to sepsis? PHYSICIAN RESPONSE Diagnosis clinically valid: Yes, Conditon resolved Please remember a lack of response to the above will prompt a phone page by CDI/ coding staff. In responding to this query, please exercise your independent professional judgment. The purpose of this communication is to more accurately reflect the complexity of your patients condition. The fact that a question is asked does not imply that any particular answer is desired or expected. Thank you for your timely response to this clarification. Requestors name: Dulce Cox [facility] Phone # ext [phone] or [phone] THIS PHYSICIAN QUERY FORM IS A PERMANENT PART OF THE MEDICAL RECORD DULCE COX Jan 18, 2017 14:17 ROMY SOUZA DO Jan 18, 2017 14:29
[2017-01-18 15:25] VITALS: BP 108/69
[2017-01-18 20:30] VITALS: BP 129/86
[2017-01-19] VITALS: BP 104/62
[2017-01-19] MEDS: RT-ALBUTEROL/IPRATROPIUM 3 ML (DUONEB) VIAL INH SCH ×4 (01:51→14:07)
[2017-01-19 04:00] VITALS: BP 116/71
[2017-01-19 04:50] LABS: BASOPHILS % (AUTO) 1 % (0-10); EOSINOPHILS # (AUTO) 0.7 10^3/uL (0.0-0.3); EOSINOPHILS % (AUTO) 9 % (0-10); LYMPHOCYTES # (AUTO) 1.5 X 10^3 (1.0-4.0); LYMPHOCYTES % (AUTO) 18 % (12-44); MEAN CORPUSCULAR HEMOGLOBIN 27 PG (25-34); MEAN CORPUSCULAR HGB CONC 31 G/DL (32-36); MEAN CORPUSCULAR VOLUME 87 FL (80-99); MEAN PLATELET VOLUME 10.7 FL (7.4-10.4); MONOCYTES % (AUTO) 12 % (0-12); NEUTROPHILS # (AUTO) 5.1 X 10^3 (1.8-7.8); NEUTROPHILS % (AUTO) 61 % (42-75); PLATELET COUNT 231 10^3/uL (130-400); RED BLOOD COUNT 5.47 10^6/uL (4.35-5.85); RED CELL DISTRIBUTION WIDTH 14.8 % (10.0-14.5); WHITE BLOOD COUNT 8.3 10^3/uL (4.3-11.0)
[2017-01-19 05:09] LABS: ALANINE AMINOTRANSFERASE 27 U/L (0-55); ALBUMIN 3.2 G/DL (3.2-4.5); ANION GAP 9 MMOL/L (5-14); ASPARTATE AMINO TRANSFERASE 22 U/L (5-34); BILIRUBIN,TOTAL 0.3 MG/DL (0.1-1.0); BLOOD UREA NITROGEN 13 MG/DL (7-18); BUN/CREATININE RATIO 11; CALCIUM 8.7 MG/DL (8.5-10.1); CARBON DIOXIDE 30 MMOL/L (21-32); CHLORIDE 102 MMOL/L (98-107); CREATININE SERUM 1.16 MG/DL (0.60-1.30); GFR ESTIMATED > 60; GLUCOSE 96 MG/DL (70-105); POTASSIUM 4.3 MMOL/L (3.6-5.0); SODIUM 141 MMOL/L (135-145); TOTAL PROTEIN 6.3 G/DL (6.4-8.2)
[2017-01-19] MEDS: MULTIVIT W/MINERALS TAB (THERAGRAN M) PO SCH (06:07)
[2017-01-19] MEDS: PANTOPRAZOLE 40 MG (PROTONIX) TAB PO SCH (06:07)
--- NOTE | 2017-01-19 06:43 | Pulmonary Progress Note ---
Subjective Subjective/Events-last exam No complications noted. Pt appears to be doing better. Exam Exam Vital Signs Date Time Temp Pulse Resp B/P (MAP) Pulse Ox O2 Delivery O2 Flow Rate FiO2 01/19/17 06:31 94 2.00 01/19/17 01:51 93 2.00 01/19/17 01:00 85 01/19/17 00:00 96.9 84 18 104/62 97 Nasal Cannula 3.00 01/18/17 22:13 92 2.00 01/18/17 21:00 Nasal Cannula 2.50 01/18/17 20:30 97.6 90 22 129/86 94 Nasal Cannula 3.00 01/18/17 19:00 87 01/18/17 18:28 90 2.00 01/18/17 15:25 96.0 86 28 108/69 95 Nasal Cannula 3.00 01/18/17 14:31 92 2.00 01/18/17 13:00 76 01/18/17 12:00 97.0 79 24 112/71 94 Nasal Cannula 2.00 01/18/17 11:14 92 2.00 01/18/17 10:54 92 3.00 01/18/17 09:00 Nasal Cannula 2.00 01/18/17 08:00 97.0 85 24 134/87 95 Nasal Cannula 2.00 01/18/17 07:02 94 2.00 01/18/17 07:00 83 I & O 01/19/17 07:00 Intake Total 3260 ml Output Total 5050 ml Balance -1790 ml General Appearance: No Apparent Distress, WD/WN HEENT: PERRL/EOMI, Normal ENT Inspection, Pharynx Normal Neck: Full Range of Motion, Normal Inspection, Non Tender, Supple, Carotid Bruit Respiratory: Chest Non Tender, Lungs Clear, No Accessory Muscle Use, No Respiratory Distress, Decreased Breath Sounds Cardiovascular: Regular Rate, Rhythm, No Edema, No Gallop, No JVD, No Murmur, Normal Peripheral Pulses Capillary Refill: Less Than 3 Seconds Extremity: Normal Capillary Refill, Normal Inspection, Normal Range of Motion, Non Tender, No Calf Tenderness, No Pedal Edema Neurologic/Psychiatric: Alert, Oriented x3, No Motor/Sensory Deficits, Normal Mood/Affect Skin: Normal Color, Warm/Dry Lymphatic: No Adenopathy Results Lab Laboratory Tests 01/17/17 09:04 4/6/17 04:38 01/19/17 04:30 Assessment/Plan Assessment/Plan PNeumonia with immunosuppression -Continue Zosyn vanco for now -await gan cultures CXR - questions bony metastatic disease -Will check Chest CT without contrast hx of lung transplant Pt can be discharged today and f/u as out pt on chest CT if needed. PT has been hypoxic and will probably need home oxygen upon discharge. He needs to f/u with his [facility] doctors after discharge. I can also see him as an out patient. Clinical Quality Measures DVT/VTE Risk/Contraindication: Risk Factor Score Per Nursin RFS Level Per Nursing on Admit: 4+=Very High RUSTAM HOPE DO Jan 19, 2017 06:43
[2017-01-19 08:00] VITALS: BP 135/88
[2017-01-19] MEDS: predniSONE 5 MG TAB PO SCH (08:36)
[2017-01-19] MEDS: MAGNESIUM OXIDE (MAG-OX)400 MG TAB PO SCH (08:36)
[2017-01-19] MEDS: PIPERACILLIN/TAZOBACTAM 4.5 GM/NS 100 ML IVPB IV SCH ×4 (08:36)
[2017-01-19] MEDS: VORICONAZOLE 200 MG TAB (VFEND) NON-FORMULARY PO SCH (08:36)
[2017-01-19] MEDS: amLODIPine 5 MG (NORVASC) TAB PO SCH (08:36)
[2017-01-19] MEDS: ASPIRIN E.C. 81 MG (ECOTRIN) TAB PO SCH (08:36)
[2017-01-19] MEDS: FOLIC ACID 1 MG TAB PO SCH (08:36)
[2017-01-19] MEDS: cloNIDine 0.1 MG (CATAPRES) TAB PO SCH ×2 (08:37→13:44)
[2017-01-19] MEDS: meTOprolol TARTRATE 50 MG (LOPRESSOR) TAB PO SCH (08:37)
[2017-01-19] MEDS: GABAPENTIN 100 MG (NEURONTIN) CAP PO SCH (08:37)
[2017-01-19] MEDS: FUROSEMIDE 40 MG (LASIX) TAB PO SCH (08:40)
--- NOTE | 2017-01-19 08:56 | Diagnostic Imaging Report ---
PROCEDURE: CT chest without contrast. TECHNIQUE: Multiple contiguous axial images were obtained through the chest without the use of intravenous contrast. INDICATION: Hypoxia. Rule out metastasis. History of bilateral lung transplant. FINDINGS: There are tiny nodules in the right middle lobe and the right upper lobe around the minor fissure up to 4 mm in size. There is no dense consolidation. There is a mild atelectasis or scarring in the left lower lobe. The heart size is normal. No pericardial or pleural effusion. Surgical clips near the silke and the upper mediastinum and neck region seen. There is no mediastinal mass. No significant lymphadenopathy in the mediastinum or in the axilla. Sections in the upper abdomen appear grossly unremarkable. There is a small to moderate-sized fat-containing subxiphoid ventral hernia. There is a diffuse homogeneous sclerosis in the osseous structures involving the spine and to lesser extent the ribs and the shoulders. IMPRESSION: 1. A few nodules up to 4 mm in size in the right middle lobe and right upper lobe could be related to an atypical infection. No prior studies are available for comparison. There is no significant consolidation. Correlate clinically and with followup exams. 2. Diffuse osseous sclerosis. This has a wide differential possibilities including osteopetrosis, myelofibrosis, renal osteodystrophy, or metabolic disorder. Correlate clinically. 3. Subxiphoid fat-containing ventral hernia. Dictated by: Dictated on workstation # [id number]
[2017-01-19] MEDS ORDERED: CEFD300C3 PO (09:58)
[2017-01-19] MEDS ORDERED: IPRA3AMP INH (09:58)
--- NOTE | 2017-01-19 10:01 | Discharge Inst-Home Health ---
Discharge Inst-to Home Health Patient Instructions Patient Instructions/FollowUp: [facility] as scheduled Lung transplant team as scheduled 02/12/17 [place], [place] DISCHARGE ORDERS Allergies: Coded Allergies: Iodinated Contrast Media - Oral and (Unverified Allergy, Unknown, 01/17/17) Height (Feet): 5 Height (Inches): 10.00 Weight (Pounds): 209 Weight (Ounces): 3.0 Home Health Need/Face to Face Reason Pt Homebound new O2 dependency I Have Seen Pt [id number]: Yes Date of Face to Face: Jan 19, 2017 Discharged To: Home Diagnosis/Conditions HH Order: New home O2 management Med administration Consult/Follow Up/New Order *I certify that based on my findings, the following services are medically necessary Home Health Services: Services: Nursing Services My clinical findings support the need for the above services; see Diagnosis. Dicharge Diet: No Restrictions Daily Activity as Tolerated: Yes Discharge Medications: New, Converted, or Re-newed RX: Transmited to Pharmacy I certify that this patient is under my care and that I, a nurse practitioner or a physician; a doctor's assistant working with me, had a face to face encounter that - meets the physician face to face encounter requirements with this patient as dated. ROMY SOUZA DO Jan 19, 2017 10:01
--- NOTE | 2017-01-19 10:03 | Discharge Summary-Hospitalist ---
Diagnosis/Chief Complaint Date of Admission Jan 17, 2017 at 10:46 Date of Discharge Admission Diagnosis Assessment: Early pneumonia either viral versus bacterial covering with antibiotics of Zosyn due to immunosuppression Bilateral lung transplant Asthma? Hypoxia Hypertension Discharge Diagnosis Assessment: Early pneumonia bilateral bases Bilateral lung transplant 6 yrs ago Asthma Hypoxia now requiring 3 liters of O2 for home use continuously Hypertension Chart Review: No fever, Vitals stable, WBC normal 8.2 CMP normal, Repeat CXR B/ L atelectasis in perihilar region. Pharmacy Review: Pt was a soft admission. Patient Interview: Pt states he does not want to be DC today. Pt states the medication is helping him. Pt states he does not have home O2. Pt will be tested for home O2. Pt states he is wanting to stay at hospital and he knows he has something wrong with him. Pt states he does not want to go home and then come back to [facility] the next day. Pt states he is getting green discharge. Physical exam was stable. Pt states he has ate solid food today for the first time in 5 days. Pt states another doctor told him he needs to stay 2 more days. Scribed by Teodoro Young under the direct supervision of Dr. Souza. No fever, vital signs stable, pleasant, improved, wearing O2 Regular rate and rhythm, clear to auscultation bilaterally but diminished in the bases but much improved no wheezing is noted No edema and normal range of motion Laboratory Tests 01/18/17 04:38 Assessment: Early pneumonia bilateral bases Bilateral lung transplant 6 yrs ago Asthma Hypoxia now requiring 6liters of O2 for home use continuously Hypertension Plan: Zosyn Nebs Pulmonary consultation appreciated Check labs and chest x-ray tomorrow and likely will discharge Home O2 orders placed Reason Hospital Visit/Course CC: Dyspnea w/fever HPI: This is a 51-year-old -[place]er male of [facility] with a past medical history of bilateral lung transplants in [place] that was last seen by that surgeon in September 2016 with pulmonary function tests that appear to be slightly abnormal that presents to the ER with shortness of breath and fever for past 2 days. He is found to have a possible viral pneumonia versus bacterial Early pneumonia on chest x-ray and his overall clinical status requiring admission to the hospital for close monitoring and pulmonary consultation. Chart Review: Neutrophil 9.7, CRP 3.6, X-ray may be viral but pt had cultures and placed on Zosyn. In [place] pt states he had pulmonary tests that were concerning? Pt has viral or bacterial pneumonia so will place on abx and monitor closely Scribed by Teodoro Young under the direct supervision of Dr. Souza. Patient feels much better since placing oxygen on and denies any sig cough. Note from 01/19/2017 Chart Review: No fever, Vitals stable, WBC 8.3, CMP all normal, CT chest obtained but results pending, Dr. Arambula Review: Will you take a look at CT chest? Pt shows no acute issues on CT chest. The only finding on lungs are minimal and could be from a previous issue and is not covering much of his lung. Pt bone finding may be systemic or congenital. Could be preexisting bone disease. Case Management Review: WBC normal the whole stay, No fever, Dr. Arambula states nothing acute is in CT chest. Will have home health, Will have close follow up at clinic. SW Review: Pt will be DC today. Pt had lung transplant for pulmonary hypertension. Patient Interview: Pt states he is doing better today. Pt was told that his CT scan showed no signs of acute issues. Pt states he sees Yane at [facility]. Pt agrees to go home on O2 today and have home health educate him on O2. Pt wants to use [facility]. Physical exam was stable. Pt states his only worry is that when he breathes it is like breathing through a straw. Pt states his air is mostly going through his mouth and not his nose. Pt states he has follow up in early February in [place] for an appointment with Dr. Addison Chase who is pt main lung transplant doctor. Pt states it is a [address] so he is concerned if he can get portable O2. Scribed by Teodoro Young under the direct supervision of Dr. Souza. No fever, vital signs stable, pleasant, improved Regular rate and rhythm, clear to auscultation bilaterally but diminished in the bases No edema Hospital course: Patient had a uneventful hospital course he was placed on empiric broad-spectrum antibiotics and monitor closely for sepsis with pneumonia. Overall chest x-ray remained stable had no evidence of any fever or elevated white count but immunosuppressive meds were held during infectious process acute illness. Pulmonology evaluated the patient in depth order CT scan due to slight abnormality of the spine and that showed no evidence of any real concern of anything dangerous at this current time. He did require home oxygen be set up and I did order home health of which he was agreeable to and I did obtain close follow-up with [facility] due to his significant comorbidities that need to be closely monitored. He does have an appointment with his pulmonary lung transplant team on February 12 in [facility] and all records will be sent to his physician there and to address a possible restrictive lung disease situation considering he reports having difficulty breathing out and releasing all the air unrelated to any type of acute issue while hospitalized. He was placed on antibiotics to complete that treatment and resume all home medications with close follow-up and return if anything worsens. Discharge Summary Discharge Physical Examination Allergies: Coded Allergies: Iodinated Contrast Media - Oral and (Unverified Allergy, Unknown, 01/17/17) Vitals & I&Os Vital Signs Date Time Temp Pulse Resp B/P (MAP) Pulse Ox O2 Delivery O2 Flow Rate FiO2 01/19/17 10:15 94 2.00 01/19/17 09:00 Nasal Cannula 01/19/17 08:00 97.2 88 20 135/88 Hospital Course Labs (last 24 hrs) Laboratory Tests 01/19/17 04:30: White Blood Count 8.3, Red Blood Count 5.47, Hemoglobin 15.0, Hematocrit 48, Mean Corpuscular Volume 87, Mean Corpuscular Hemoglobin 27, Mean Corpuscular Hemoglobin Concent 31L, Red Cell Distribution Width 14.8H, Platelet Count 231, Mean Platelet Volume 10.7H, Neutrophils (%) (Auto) 61, Lymphocytes (%) (Auto) 18 , Monocytes (%) (Auto) 12, Eosinophils (%) (Auto) 9, Basophils (%) (Auto) 1, Neutrophils # (Auto) 5.1, Lymphocytes # (Auto) 1.5, Monocytes # (Auto) 1.0, Eosinophils # (Auto) 0.7H, Basophils # (Auto) 0.0, Sodium Level 141, Potassium Level 4.3, Chloride Level 102, Carbon Dioxide Level 30, Anion Gap 9, Blood Urea Nitrogen 13, Creatinine 1.16, Estimat Glomerular Filtration Rate > 60, BUN/ Creatinine Ratio 11, Glucose Level 96, Calcium Level 8.7, Total Bilirubin 0.3, Aspartate Amino Transf (AST/SGOT) 22, Alanine Aminotransferase (ALT/SGPT) 27, Alkaline Phosphatase 127, Total Protein 6.3L, Albumin 3.2 Microbiology 01/17/17 Blood Culture - Preliminary, Resulted No growth 01/17/17 Influenza Types A,B Antigen (NAYAN) - Final, Complete Pending Labs Laboratory Tests 01/19/17 04:30: White Blood Count 8.3, Red Blood Count 5.47, Hemoglobin 15.0, Hematocrit 48, Mean Corpuscular Volume 87, Mean Corpuscular Hemoglobin 27, Mean Corpuscular Hemoglobin Concent 31, Red Cell Distribution Width 14.8, Platelet Count 231, Mean Platelet Volume 10.7, Neutrophils (%) (Auto) 61, Lymphocytes (%) (Auto) 18 , Monocytes (%) (Auto) 12, Eosinophils (%) (Auto) 9, Basophils (%) (Auto) 1, Neutrophils # (Auto) 5.1, Lymphocytes # (Auto) 1.5, Monocytes # (Auto) 1.0, Eosinophils # (Auto) 0.7, Basophils # (Auto) 0.0, Sodium Level 141, Potassium Level 4.3, Chloride Level 102, Carbon Dioxide Level 30, Anion Gap 9, Blood Urea Nitrogen 13, Creatinine 1.16, Estimat Glomerular Filtration Rate > 60, BUN/ Creatinine Ratio 11, Glucose Level 96, Calcium Level 8.7, Total Bilirubin 0.3, Aspartate Amino Transf (AST/SGOT) 22, Alanine Aminotransferase (ALT/SGPT) 27, Alkaline Phosphatase 127, Total Protein 6.3, Albumin 3.2 Discharge Home Medications: Active Scripts Active Cefdinir 300 Mg Capsule 300 Mg PO BID Iprat-Albut 0.5-3(2.5) mg/3 ml (Ipratropium/Albuterol Sulfate) 3 Ml Ampul.neb 3 Ml INH RTQ4HR Reported Metoprolol Tartrate 50 Mg Tablet 50 Mg PO BID LAST FILLED 08-25-16 #180 Gabapentin 100 Mg Capsule 100 Mg PO BID Daily Multiple Vitamin (Multivitamin) 1 Each Tablet 1 Tab PO DAILY Magnesium Oxide 400 Mg Tablet 400 Mg PO BID LAST FILLED #180 08-25-16 Labetalol HCl 200 Mg Tablet 200 Mg PO BID Clonidine HCl 0.1 Mg Tablet 0.1 Mg PO TID LAST FILLED #270 08-25-16 Voriconazole 200 Mg Tablet 200 Mg PO BID LAST FILLED #60 11-30-16 Prograf (Tacrolimus) 0.5 Mg Capsule 0.5 Mg PO HS Tacrolimus 0.5 Mg Capsule 1 Mg PO DAILY TAKES 2 (0.5MG) CAPSULES IN THE MORNING Furosemide 40 Mg Tablet 40 Mg PO BID LAST FILLED #180 08-25-16 Aspirin EC (Aspirin) 81 Mg Tablet.dr 81 Mg PO DAILY Folic Acid 1 Mg Tablet 1 Mg PO DAILY Esomeprazole Magnesium 40 Mg Capsule.dr 40 Mg PO DAILY Amlodipine Besylate 5 Mg Tablet 5 Mg PO DAILY Sulfamethoxazole-Tmp Ds Tablet (Sulfamethoxazole/Trimethoprim) 1 Each Tablet 1 Tab PO MOWEFR Fludrocortisone Acetate 0.1 Mg Tab 0.1 Mg PO MOWEFR Prednisone 5 Mg Tablet 5 Mg PO DAILY Instructions to patient/family Please see electonic discharge instructions given to patient. Clinical Quality Measures DVT/VTE Risk/Contraindication: Risk Factor Score Per Nursin RFS Level Per Nursing on Admit: 4+=Very High ROMY SOUZA DO Jan 19, 2017 10:03
--- NOTE | 2017-01-19 10:55 | Diagnostic Imaging Report ---
PA and lateral views of the chest. COMPARISON: 01/18/2017. FINDINGS: Again seen diffuse osseous sclerosis. Sternotomy wires are also seen. There is no significant infiltrate. There is no effusion or pneumothorax. The mediastinum and silke appear unremarkable. There is an incomplete metallic rim seen in the heart probably related to tricuspid valve replacement. IMPRESSION: Diffuse osseous sclerosis. No focal infiltrate. Dictated by: Dictated on workstation # [id number]
[2017-01-19 12:00] VITALS: BP 122/78
[2017-01-19] MEDS: FLUDROCORTISONE 0.1 MG (FLORINEF) TAB PO SCH (13:44)
[2017-01-19] MEDS: TRIM/SULFAMETH 160/800 (SEPTRA DS) TAB PO SCH (13:44)
[2017-01-19 14:33] VITALS: BP 122/78
--- OUTSIDE RECORDS SUMMARY | 2017-02-18 16:46 | XMS REPORT ---
Author Author JOEL NAJERA Organization e[employer] Address Unknown Phone Unavailable Care Team Providers Care Linotype Machinist Apprentice Name Role Phone JOEL NAJERA CP Unavailable Allergies, Adverse Reactions, Alerts Substance Reaction Event Type MRI DYE Info Not Available Non Drug Allergy Problems Problem Type Condition Code Onset Dates Condition Status Assessment Lung transplant status, bilateral Z94.2 Active Problem Personal history of pulmonary hypertension Z86.79 Active Assessment Routine health maintenance Z00.00 Active Problem Lung transplant status, bilateral Z94.2 Active Problem Essential hypertension I10 Active Problem Routine health maintenance Z00.00 Active 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 Active Problem Personal history of sarcoidosis Z86.2 Active Problem Body mass index (BMI) of 45.0-49.9 in adult Z68.42 Active Problem Morbid (severe) obesity due to excess calories E66.01 Active 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 Z79.52 Active Assessment Morbid (severe) obesity due to excess calories E66.01 Active Assessment Personal history of pulmonary hypertension Z86.79 Active Assessment Body mass index (BMI) of 45.0-49.9 in adult Z68.42 Active Assessment Personal history of sarcoidosis Z86.2 Active Assessment Essential hypertension I10 Active Medications Medication Code System Code Instructions Start Date End Date Status Dosage PredniSONE [facility] [address]-10 5 MG Orally Once a day 1 tablet Amlodipine Besylate [facility] [address]-24 5 MG Orally Once a day 1 tablet Aspirin [facility] [address]-25 81 MG Orally Once a day 1 tablet Clonidine HCl [facility] [address]-09 0.1 MG Orally 3 times a day 1 tablet Furosemide [facility] [address]-88 40 mg Orally Twice a day 1 tablet Voriconazole [facility] [address]-29 200 mg Orally 2 times a day not defined Clonidine HCl [facility] [address]-71 0.2 MG/24HR Transdermal once weekly 1 patch to skin Tacrolimus [facility] [address]-67 0.5 MG Orally 2 Capsules in the morning and 1 in the evening not defined Folic Acid [facility] [address]-76 1 MG Orally Once a day 1 tablet Multivitamin Adult [facility] 51710-99810 - Orally not defined Magnesium Oxide [facility] [address]-29 400 MG Orally 2 times a day not defined Nexium [facility] [address]-03 40 mg Orally Twice a day 1 capsule Gabapentin [facility] [address]-74 100 MG Orally every 8 hours not defined Labetalol HCl [facility] [address]-53 200 mg Orally every 8 hours 1 tablet Albuterol Sulfate [facility] [address]-07 (5 MG/ML) 0.5% Inhalation every 6 hours as needed for wheezing for SOB 0.5 ml Bactrim DS [facility] [address]-09 800-160 MG Orally sunday, sunday and Sunday 1 tablet Fludrocortisone Acetate [facility] [address]-00 0.1 MG Orally 1 tablet Metoprolol Tartrate [facility] [address]-90 50 MG Orally Twice a day 1 tablet with food Procedures Procedure Coding System Code Date Office Visit, New Pt., Level 4 CPT-4 37974 May 12, 2016 [facility] VISIT NEW PATIENT CPT-4 G0466 May 12, 2016 Vital Signs Date/Time: May 12, 2016 Cardiac Monitoring Heart Rate 78 bpm Weight 243.7 lbs Height 61.2 in BMI 45.74 Index Blood Pressure Diastolic 102 mmHg Blood Pressure Systolic 142 mmHg Results No Known Results Summary Purpose eClinicalWorks Submission
--- OUTSIDE RECORDS SUMMARY | 2017-02-18 16:46 | XMS REPORT ---
Author Author JOEL NAJERA Organization [employer] Address Unknown Phone Unavailable Care Team Providers Care Protohistorian Name Role Phone JOEL NAJERA CP Unavailable Allergies No Known Allergies Problems Problem Type Condition Code Onset Dates Condition Status Problem Personal history of pulmonary hypertension Z86.79 Active Problem Lung transplant status, bilateral Z94.2 Active Problem Essential hypertension I10 Active Problem Routine health maintenance Z00.00 Active Problem residential current use of systemic steroids Z79.52 Active Problem Personal history of sarcoidosis Z86.2 Active Problem Body mass index (BMI) of 45.0-49.9 in adult Z68.42 Active Problem Morbid (severe) obesity due to excess calories E66.01 Active Medications No Known Medications Results No Known Results Summary Purpose [employer]ClinicalWorks Submission
--- OUTSIDE RECORDS SUMMARY | 2017-02-18 16:46 | XMS REPORT ---
Author Author JOEL NAJERA Organization [employer] Address Unknown Phone Unavailable Care Team Providers Care Phlebotomy Lab Assistant Name Role Phone JOEL NAJERA CP Unavailable Allergies No Known Allergies Problems Problem Type Condition Code Onset Dates Condition Status Problem Personal history of pulmonary hypertension Z86.79 Active Problem Lung transplant status, bilateral Z94.2 Active Problem Essential hypertension I10 Active Problem Routine health maintenance Z00.00 Active Problem [facility] current use of systemic steroids Z79.52 Active Problem Personal history of sarcoidosis Z86.2 Active Problem Body mass index (BMI) of 45.0-49.9 in adult Z68.42 Active Problem Morbid (severe) obesity due to excess calories E66.01 Active Medications No Known Medications Results No Known Results Summary Purpose [employer]ClinicalWorks Submission
--- OUTSIDE RECORDS SUMMARY | 2017-02-18 16:46 | XMS REPORT ---
Author Author JOEL NAJERA Organization [employer] Address Unknown Phone Unavailable Care Team Providers Care Drilling Supervisor Name Role Phone JOEL NAJERA CP Unavailable Allergies No Known Allergies Problems Problem Type Condition Code Onset Dates Condition Status Problem Personal history of pulmonary hypertension Z86.79 Active Problem Lung transplant status, bilateral Z94.2 Active Problem Essential hypertension I10 Active Problem Routine health maintenance Z00.00 Active Problem custodial current use of systemic steroids Z79.52 Active Problem Personal history of sarcoidosis Z86.2 Active Problem Body mass index (BMI) of 45.0-49.9 in adult Z68.42 Active Problem Morbid (severe) obesity due to excess calories E66.01 Active Medications No Known Medications Results No Known Results Summary Purpose [employer]ClinicalWorks Submission
--- OUTSIDE RECORDS SUMMARY | 2017-02-18 16:47 | XMS REPORT ---
Author Author JOEL NAJERA Organization [employer] Address Unknown Phone Unavailable Care Team Providers Care Indigo Mixer Name Role Phone JOEL NAJERA CP Unavailable Allergies No Known Allergies Problems Problem Type Condition Code Onset Dates Condition Status Problem Personal history of pulmonary hypertension Z86.79 Active Problem Lung transplant status, bilateral Z94.2 Active Problem Essential hypertension I10 Active Problem Routine health maintenance Z00.00 Active Problem [facility] current use of systemic steroids Z79.52 Active Problem Personal history of sarcoidosis Z86.2 Active Problem Body mass index (BMI) of 45.0-49.9 in adult Z68.42 Active Problem Morbid (severe) obesity due to excess calories E66.01 Active Medications No Known Medications Results No Known Results Summary Purpose [employer]ClinicalWorks Submission
--- OUTSIDE RECORDS SUMMARY | 2017-02-18 16:47 | XMS REPORT ---
Author Author JOEL NAJEAR Organization [employer] Address Unknown Phone Unavailable Care Team Providers Care Automatic Beam Warper Tender Name Role Phone JOEL NAJERA CP Unavailable Allergies No Known Allergies Problems Problem Type Condition Code Onset Dates Condition Status Problem Personal history of pulmonary hypertension Z86.79 Active Problem Lung transplant status, bilateral Z94.2 Active Problem Essential hypertension I10 Active Problem Routine health maintenance Z00.00 Active Problem correction current use of systemic steroids Z79.52 Active Problem Personal history of sarcoidosis Z86.2 Active Problem Body mass index (BMI) of 45.0-49.9 in adult Z68.42 Active Problem Morbid (severe) obesity due to excess calories E66.01 Active Medications Medication Code System Code Instructions Start Date End Date Status Dosage Nexium [facility] [address]-93 40 mg Orally Once a day 1 capsule Results No Known Results Summary Purpose eClinicalWorks Submission
--- OUTSIDE RECORDS SUMMARY | 2017-02-18 16:47 | XMS REPORT ---
Author Author JOEL NAJERA Organization [employer] Address Unknown Phone Unavailable Care Team Providers Care Senior System Operator Name Role Phone JOEL NAJERA CP Unavailable Allergies No Known Allergies Problems Problem Type Condition Code Onset Dates Condition Status Problem Personal history of pulmonary hypertension Z86.79 Active Problem Lung transplant status, bilateral Z94.2 Active Problem Essential hypertension I10 Active Problem Routine health maintenance Z00.00 Active Problem snf current use of systemic steroids Z79.52 Active Problem Personal history of sarcoidosis Z86.2 Active Problem Body mass index (BMI) of 45.0-49.9 in adult Z68.42 Active Problem Morbid (severe) obesity due to excess calories E66.01 Active Medications Medication Code System Code Instructions Start Date End Date Status Dosage Voriconazole [facility] [address]-00 200 mg Orally 2 times a day 1 tablet Fludrocortisone Acetate [facility] [address]-05 0.1 MG Orally Three times a Week 1 tablet Gabapentin [facility] [address]-50 100 MG Orally every 8 hours 1 tablet Labetalol HCl [facility] [address]-69 200 mg Orally every 8 hours 1 tablet Nexium [facility] [address]-14 40 mg Orally Twice a day 1 capsule PredniSONE [facility] [address]-00 5 mg Orally Once a day 1 tablet Magnesium Oxide [facility] [address]-91 400 MG Orally 2 times a day 1 tablet Folic Acid [facility] [address]-49 1 MG Orally Once a day 1 tablet Clonidine HCl [facility] [address]-17 0.1 MG Orally 3 times a day 1 tablet Multivitamin Adult [facility] 27090-72914 - Orally 1 tablet Metoprolol Tartrate [facility] [address]-10 50 mg Orally Twice a day 1 tablet with food Bactrim DS [facility] [address]-28 800-160 MG Orally sunday, sunday and Sunday 1 tablet Furosemide [facility] [address]-43 40 mg Orally Twice a day 1 tablet Tacrolimus [facility] [address]-06 0.5 MG Orally 2 Capsules in the morning and 1 in the evening .... Amlodipine Besylate [facility] [address]-56 5 mg Orally Once a day 1 tablet Results No Known Results Summary Purpose eClinicalWorks Submission
--- OUTSIDE RECORDS SUMMARY | 2017-02-18 16:47 | XMS REPORT ---
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 Z79.52 Active Problem Personal history of sarcoidosis Z86.2 Active Problem Body mass index (BMI) of 45.0-49.9 in adult Z68.42 Active Problem Morbid (severe) obesity due to excess calories E66.01 Active Medications Medication Code System Code Instructions Start Date End Date Status Dosage Voriconazole [facility] [address]-61 200 mg Orally 2 times a day Nov 23, 2016 1 tablet Fludrocortisone Acetate [facility] [address]-78 0.1 MG Orally Three times a Week Nov 23, 2016 1 tablet Magnesium Oxide [facility] [address]-97 400 MG Orally 2 times a day Nov 23, 2016 1 tablet Metoprolol Tartrate [facility] [address]-80 50 mg Orally Twice a day 1 tablet with food Folic Acid [facility] [address]-34 1 MG Orally Once a day Nov 23, 2016 1 tablet PredniSONE [facility] [address]-73 5 mg Orally Once a day Nov 23, 2016 1 tablet Bactrim DS [facility] [address]-35 800-160 MG Orally sunday, sunday and Sunday 1 tablet Nexium [facility] [address]-29 40 mg Orally Once a day 1 capsule Clonidine HCl [facility] [address]-85 0.1 MG Orally 3 times a day 1 tablet Multivitamin Adult [facility] 92240-67900 - Orally 1 tablet Amlodipine Besylate [facility] [address]-13 5 mg Orally Once a day 1 tablet Gabapentin [facility] [address]-48 100 MG Orally every 8 hours 1 tablet Furosemide [facility] [address]-27 40 mg Orally Twice a day 1 tablet Tacrolimus [facility] [address]-65 0.5 MG Orally 2 Capsules in the morning and 1 in the evening Nov 23, 2016 .... Labetalol HCl [facility] [address]-96 200 mg Orally every 8 hours 1 tablet Results No Known Results Summary Purpose eClinicalWorks Submission
--- OUTSIDE RECORDS SUMMARY | 2017-02-18 16:47 | XMS REPORT ---
Author Author JOEL NAJERA Organization [employer] Address Unknown Phone Unavailable Care Team Providers Care Computer Scientist Name Role Phone JOEL NAJERA CP Unavailable [...]
== END 2017-01-19 14:33 | disposition home health service (06) | DRG 871 ==
LOC: ER 08:56 → 4TH 10:46
PROVIDERS: ADMIT Internal Medicine; ATTEND Internal Medicine
DX: A41.9 Sepsis, unspecified organism (principal); J12.9 Viral pneumonia, unspecified; J15.9 Unspecified bacterial pneumonia; J96.01 Acute respiratory failure with hypoxia; Z94.2 Lung transplant status; J45.909 Unspecified asthma, uncomplicated; I10 Essential (primary) hypertension; K21.9 Gastro-esophageal reflux disease without esophagitis; Z99.81 Dependence on supplemental oxygen
CPT/HCPCS: 36415; 71020; 71250; 80053; 83605; 83735; 84484; 85007; 85025; 85027; 86141; 87040; 87070; 87205; 87804; 93005; 94640; 94760; 94761; 96361; 96365

== ENCOUNTER 2017-01-29 13:56 | Emergency (ER) | payer MEDICARE ==
[~2017-01-29] VITALS: Ht 177.8 cm; Wt 93.5 kg
[~2017-01-29 13:56] MED LIST: AMLO5TAB2 PO; ASPI-983 PO; CEFD300C3 PO; CLON0.1T PO; ESOM40CA52 PO; FLDR.1T PO; FOLI1TAB24 PO; FURO40TA4 PO; GABA-486 PO; IPRA3AMP INH; LABE200T3 PO; MAGN400T6 PO; METO50TA2 PO; MULT-35 PO; PRED5TAB PO; SULF-222 PO; TACR0.5C PO; TACR0.5C6 PO; VORI200T10 PO
[2017-01-29 14:32] LABS: BASOPHILS # (AUTO) 0.1 10^3/uL (0.0-0.1); BASOPHILS % (AUTO) 1 % (0-10); EOSINOPHILS # (AUTO) 0.8 10^3/uL (0.0-0.3); EOSINOPHILS % (AUTO) 10 % (0-10); LYMPHOCYTES # (AUTO) 1.5 X 10^3 (1.0-4.0); LYMPHOCYTES % (AUTO) 19 % (12-44); MEAN CORPUSCULAR HEMOGLOBIN 27 PG (25-34); MEAN CORPUSCULAR HGB CONC 30 G/DL (32-36); MEAN CORPUSCULAR VOLUME 90 FL (80-99); MEAN PLATELET VOLUME 10.9 FL (7.4-10.4); MONOCYTES # (AUTO) 0.9 X 10^3 (0.0-1.0); MONOCYTES % (AUTO) 11 % (0-12); NEUTROPHILS # (AUTO) 4.9 X 10^3 (1.8-7.8); NEUTROPHILS % (AUTO) 61 % (42-75); PLATELET COUNT 206 10^3/uL (130-400); RED BLOOD COUNT 6.01 10^6/uL (4.35-5.85); RED CELL DISTRIBUTION WIDTH 14.2 % (10.0-14.5)
[2017-01-29 15:00] LABS: ALANINE AMINOTRANSFERASE 56 U/L (0-55); ALBUMIN 3.9 G/DL (3.2-4.5); ANION GAP 7 MMOL/L (5-14); ASPARTATE AMINO TRANSFERASE 32 U/L (5-34); BILIRUBIN,TOTAL 0.2 MG/DL (0.1-1.0); BLOOD UREA NITROGEN 15 MG/DL (7-18); BUN/CREATININE RATIO 15; CALCIUM 9.7 MG/DL (8.5-10.1); CARBON DIOXIDE 34 MMOL/L (21-32); CHLORIDE 100 MMOL/L (98-107); GFR ESTIMATED > 60; GLUCOSE 140 MG/DL (70-105); SODIUM 141 MMOL/L (135-145); TOTAL PROTEIN 8.1 G/DL (6.4-8.2); hs C REACTIVE PROTEIN 3.26 MG/DL (0.00-0.50)
[2017-01-29 15:04] LABS: POTASSIUM 5.2 MMOL/L (3.6-5.0)
--- NOTE | 2017-01-29 15:08 | Diagnostic Imaging Report ---
INDICATION: Dyspnea and wheezing. DISCUSSION: Two views of the chest were obtained with comparison made to 01/19/2017. 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 Median sternotomy is present. The valvular prosthesis is stable. Stable normal heart size. No focal consolidation, pleural fluid, or pneumothorax. Diffuse osseous sclerosis is stable, of uncertain etiology. IMPRESSION: No acute cardiopulmonary process. Dictated by: Dictated on workstation # [id number]
--- NOTE | 2017-01-29 16:13 | ED Respiratory ---
General Chief Complaint: Respiratory Problems Stated Complaint: SOA Nursing Triage Note: PT TO RM 2 BY [facility] WITH CC OF SOB, RECENT PNEUMONIA, WHEEZING IN LT LOWER LOBE, BREATHING TX BY EMS ON ARRIVAL. HX OF DOUBLE LUNG TRANSPLANT DUE TO PULMONARY HYPERTENSION. Source: patient, old records Exam Limitations: no limitations History of Present Illness Time seen by provider: 14:27 Initial Comments This 51-year-old gentleman presents to the emergency room with complaints of difficulty breathing, cough, fatigue, and specifically difficulty with expiratory phase. He reports feeling like he is "breathing through a straw". He has been using nebulizer treatments every 4 hours but continues to have problems despite. He was admitted recently for suspected pneumonia with sepsis. He finished outpatient antibiotics on Sunday. He has had a progressive worsening of symptoms since then. He has history of lung transplant because of pulmonary hypertension. Respiratory symptoms have worsened since moving to [place]. He has a follow-up appointment with Dr. Gauthier on the of this month. He is afebrile at present and reports no fevers at home in the past few days. Allergies and Home Medications Allergies Coded Allergies: Iodinated Contrast Media - Oral and (Unverified Allergy, Unknown, 01/17/17) Home Medications Amlodipine Besylate 5 Mg Tablet, 5 MG PO DAILY, (Reported) Aspirin 81 Mg Tablet.dr, 81 MG PO DAILY, (Reported) Cefdinir 300 Mg Capsule, 300 MG PO BID, #8 Prescribed by: ROMY SOUZA on 01/19/17 0958 Cetirizine HCl 10 Mg Capsule, 10 MG PO DAILY, #30 Ref 11 Prescribed by: CACHORRO COSTA on 01/29/17 1617 Clonidine HCl 0.1 Mg Tablet, 0.1 MG PO TID, (Reported) LAST FILLED #270 08-25-16 Esomeprazole Magnesium 40 Mg Capsule.dr, 40 MG PO DAILY, (Reported) Fludrocortisone Acetate 0.1 Mg Tab, 0.1 MG PO MoWeFr, (Reported) Fluticasone Propionate 9.9 Ml [place].susp, 2 SPRAYS NSEACH DAILY, #1 Ref 11 Prescribed by: CACHORRO COSTA on 01/29/17 1617 Folic Acid 1 Mg Tablet, 1 MG PO DAILY, (Reported) Furosemide 40 Mg Tablet, 40 MG PO BID, (Reported) LAST FILLED #180 08-25-16 Gabapentin 100 Mg Capsule, 100 MG PO BID, (Reported) Ipratropium/Albuterol Sulfate 3 Ml Ampul.neb, 3 ML INH RTQ4HR, #60 Prescribed by: ROMY SOUZA on 01/19/17 0958 Labetalol HCl 200 Mg Tablet, 200 MG PO BID, (Reported) Magnesium Oxide 400 Mg Tablet, 400 MG PO BID, (Reported) LAST FILLED #180 08-25-16 Metoprolol Tartrate 50 Mg Tablet, 50 MG PO BID, (Reported) LAST FILLED 08-25-16 #180 Montelukast Sodium 10 Mg Tablet, 10 MG PO DAILY, #30 Prescribed by: CACHORRO COSTA on 01/29/17 1617 Multivitamin 1 Each Tablet, 1 TAB PO DAILY, (Reported) Prednisone 5 Mg Tablet, 5 MG PO DAILY, (Reported) Prednisone 10 Mg Tab.ds.pk, 10 MG PO DAILY, #42 Take 6 tabs(60mg)daily,decrease by 1 tab(10mg)every other day. Prescribed by: CACHORRO COSTA on 01/29/17 1617 Sulfamethoxazole/Trimethoprim 1 Each Tablet, 1 TAB PO MoWeFr, (Reported) Tacrolimus 0.5 Mg Capsule, 1 MG PO DAILY, (Reported) TAKES 2 (0.5MG) CAPSULES IN THE MORNING Tacrolimus 0.5 Mg Capsule, 0.5 MG PO HS, (Reported) Voriconazole 200 Mg Tablet, 200 MG PO BID, (Reported) LAST FILLED #60 11-30-16 Constitutional: no symptoms reported EENTM: no symptoms reported Respiratory: see HPI Cardiovascular: no symptoms reported Gastrointestinal: no symptoms reported Genitourinary: no symptoms reported Musculoskeletal: no symptoms reported Skin: no symptoms reported Psychiatric/Neurological: No Symptoms Reported Hematologic/Lymphatic: No Symptoms Reported Past Mskyxue-Ttphsd-Ezlykw Hx Patient Social History Alcohol Use: Denies Use Recreational Drug Use: No Smoking Status: Never a Smoker 2nd Hand Smoke Exposure: No Recent Foreign Travel: No Contact w/Someone Who Travel: No Recent Infectious Disease Expo: No Recent Hopitalizations: No Immunizations Up To Date Tetanus Booster (TDap): Unknown Date of Pneumonia Vaccine: Sep 18, 2014 Date of Influenza Vaccine: Jul 19, 2016 Seasonal Allergies Seasonal Allergies: No Surgeries HX Surgeries: Yes (bilateral lung transplant) Surgeries: Lobectomy Respiratory Hx Respiratory Disorders: Yes Respiratory Disorders: Pneumonia Cardiovascular Hx Cardiac Disorders: Yes (pulmonary hypertension status post lung transplant) Cardiac Disorders: Hypertension Neurological Hx Neurological Disorders: No Reproductive System Hx Reproductive Disorders: No Sexually Transmitted Disease: No HIV/AIDS: No Genitourinary Hx Genitourinary Disorders: No Gastrointestinal Hx Gastrointestinal Disorders: No Gastrointestinal Disorders: Gastroesophageal Reflux Musculoskeletal Hx Musculoskeletal Disorders: No Endocrine Hx Endocrine Disorders: No HEENT HX ENT Disorders: No Loss of Vision: Denies Hearing Impairment: Denies Cancer Hx Cancer: No Psychosocial Hx Psychiatric Problems: No Integumentary HX Skin/Integumentary Disorder: No Blood Transfusions Hx Blood Disorders: No Family Medical History Family Medial History: Asthma 19 MOTHER Diabetes mellitus 19 FATHER Hypercholesterolemia 19 FATHER 19 MOTHER G8 BROTHER G8 SISTER Hypertension 19 FATHER 19 MOTHER G8 BROTHER G8 SISTER Thyroid disease G8 SISTER Physical Exam Vital Signs Vital Sign - Last 12Hours 01/29/17 01/29/17 14:01 16:09 Temp 97.6 Pulse 81 Resp 20 B/P (MAP) 124/80 Pulse Ox 100 O2 Delivery Nasal Cannula O2 Flow Rate 3.00 FiO2 98 Capillary Refill : Less Than 3 Seconds General Appearance: WD/WN, no apparent distress HEENT: PERRL/EOMI, normal ENT inspection, TMs normal, pharynx normal Neck: normal inspection Respiratory: no respiratory distress, no accessory muscle use, wheezing, other (wheezing and significant delay with forced expiration) Cardiovascular: regular rate, rhythm, no edema, no murmur Gastrointestinal: normal bowel sounds, non tender, soft Extremities: normal inspection, no pedal edema Neurologic/Psychiatric: 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 tested, no motor/sensory deficits, alert, normal mood/affect, oriented x 3 Skin: normal color, warm/dry Progress/Results/Core Measures Results/Orders Lab Results Laboratory Tests Test 01/29/17 14:20 Range/Units White Blood Count 8.0 4.3-11.0 10^3/uL Red Blood Count 6.01 H 4.35-5.85 10^6/uL Hemoglobin 16.1 13.3-17.7 G/DL Hematocrit 54 40-54 % Mean Corpuscular Volume 90 80-99 FL Mean Corpuscular Hemoglobin 27 25-34 PG Mean Corpuscular Hemoglobin Concent 30 L 32-36 G/DL Red Cell Distribution Width 14.2 10.0-14.5 % Platelet Count 206 130-400 10^3/uL Mean Platelet Volume 10.9 H 7.4-10.4 FL Neutrophils (%) (Auto) 61 42-75 % Lymphocytes (%) (Auto) 19 12-44 % Monocytes (%) (Auto) 11 0-12 % Eosinophils (%) (Auto) 10 0-10 % Basophils (%) (Auto) 1 0-10 % Neutrophils # (Auto) 4.9 1.8-7.8 X 10^3 Lymphocytes # (Auto) 1.5 1.0-4.0 X 10^3 Monocytes # (Auto) 0.9 0.0-1.0 X 10^3 Eosinophils # (Auto) 0.8 H 0.0-0.3 10^3/uL Basophils # (Auto) 0.1 0.0-0.1 10^3/uL Sodium Level 141 135-145 MMOL/L Potassium Level 5.2 H 3.6-5.0 MMOL/L Chloride Level 100 98-107 MMOL/L Carbon Dioxide Level 34 H 21-32 MMOL/L Anion Gap 7 5-14 MMOL/L Blood Urea Nitrogen 15 7-18 MG/DL Creatinine 1.00 0.60-1.30 MG/DL Estimat Glomerular Filtration Rate > 60 BUN/Creatinine Ratio 15 Glucose Level 140 H 70-105 MG/DL Calcium Level 9.7 8.5-10.1 MG/DL Total Bilirubin 0.2 0.1-1.0 MG/DL Aspartate Amino Transf (AST/SGOT) 32 5-34 U/L Alanine Aminotransferase (ALT/SGPT) 56 H 0-55 U/L Alkaline Phosphatase 164 H 40-136 U/L C-Reactive Protein High Sensitivity 3.26 H 0.00-0.50 MG/DL Total Protein 8.1 6.4-8.2 G/DL Albumin 3.9 3.2-4.5 G/DL My Orders Orders - CACHORRO NGO MD Cbc With Automated Diff (01/29/17 14:27) Comprehensive Metabolic Panel (01/29/17 14:27) Hs C Reactive Protein (01/29/17 14:27) Saline Lock/Iv-Start (01/29/17 14:27) Chest Pa/Lat (2 View) (01/29/17 14:27) Albuterol/Ipra Inhalation Soln (Duoneb I (01/29/17 16:15) Svn Sm Volume Nebulizer Rt-Rfs (01/29/17 16:03) Methylprednisolone Sod Succ (Solu-Medrol (01/29/17 16:15) Medications Given in ED Vital Signs/I&O Vital Sign - Last 12Hours 01/29/17 01/29/17 01/29/17 14:01 16:09 16:34 Temp 97.6 97.6 Pulse 81 81 Resp 20 20 B/P (MAP) 124/80 Pulse Ox 100 96 O2 Delivery Nasal Cannula O2 Flow Rate 3.00 3.00 FiO2 98 Blood Pressure Mean: 95 Progress Note : Progress Note Workup was unremarkable. Case was reviewed with Dr. Gauthier. Symptoms seem to coincide with marketed increase in environmental pollen. Symptoms also seem to be worse since moving to [place]. A significant allergic component is suspected. Dr. Gauthier and I agree aggressive treatment for allergies would be beneficial. Dr. Gauthier recommends a combination of Flonase, Zyrtec, steroid burst, and Singulair. Plan was discussed with patient and he was encouraged to keep his follow-up with Dr. Gauthier. Diagnostic Imaging Diagonstic Imaging: Xray Plain Films/CT/US/NM/MRI: chest Comments Chest x-ray viewed by me and compared with prior. Report reviewed. See report below: NAME: SHEMAR SERNA [facility] REC#: [id number] PT STATUS: DEP ER : 1965 PHYSICIAN: CACHORRO NGO MD ADMIT DATE: 01/29/17/ER Signed Date of Exam: 01/29/17 CHEST PA/LAT (2 VIEW) INDICATION: Dyspnea and wheezing. DISCUSSION: Two views of the chest were obtained with comparison made to 01/19/2017. 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 Median sternotomy is present. The valvular prosthesis is stable. Stable normal heart size. No focal consolidation, pleural fluid, or pneumothorax. Diffuse osseous sclerosis is stable, of uncertain etiology. IMPRESSION: No acute cardiopulmonary process. Dictated by: Dictated on workstation # [id number] <Dictated by ISHAN DELUCA MD> Departure Impression Impression: Primary Impression: Bronchospasm Additional Impression: Dyspnea Qualified Codes: R06.00 - Dyspnea, unspecified Disposition: 01 HOME, SELF-CARE Condition: Improved Departure-Patient Inst. Decision time for Depature: 16:11 Referrals: NO,LOCAL PHYSICIAN (PCP/Family) Primary Care Physician Patient Instructions: Asthma, Adult (DC), Seasonal Allergies in Adults Add. Discharge Instructions: Start the regimen for allergies prescribed in the ER. Keep your follow-up with Dr. Gauthier. Contact him in the office if not improving within 48 hours. Return to the emergency room if symptoms worsen. Continue with breathing treatments as prescribed. All discharge instructions reviewed with patient and/or family. Voiced understanding. Scripts Prednisone (Prednisone) 10 Mg Tab.ds.pk 10 MG PO DAILY, #42 PKG Take 6 tabs(60mg)daily,decrease by 1 tab(10mg)every other day. Prov: CACHORRO NGO MD 01/29/17 Montelukast Sodium (Singulair) 10 Mg Tablet 10 MG PO DAILY, #30 TAB Prov: CACHORRO NGO MD 01/29/17 Cetirizine HCl (Zyrtec) 10 Mg Capsule 10 MG PO DAILY, #30 CAP 11 Refills Prov: CACHORRO NGO MD 01/29/17 Fluticasone Propionate (Flonase Allergy Relief) 9.9 Ml Artesia.susp 2 SPRAYS NSEACH DAILY, #1 SPRAY 11 Refills Prov: CACHORRO NGO MD 01/29/17 Copy Copies To 1: RUSTAM GAUTHIER JOSHUA T MD Jan 29, 2017 16:13
[2017-01-29] MEDS ORDERED: methylPREDNISolone 40 MG/ML (Solu-MEDROL) VIAL IV ONE (16:15)
[2017-01-29] MEDS ORDERED: RT-ALBUTEROL/IPRATROPIUM 3 ML (DUONEB) VIAL INH ONE (16:15)
[2017-01-29] MEDS ORDERED: PRED10TA22 PO (16:17)
[2017-01-29] MEDS ORDERED: CETI10CA PO (16:17)
[2017-01-29] MEDS ORDERED: MONT10TA21 PO (16:17)
[2017-01-29] MEDS ORDERED: FLUT9.9S NSEACH (16:17)
[2017-01-29 16:34] VITALS: BP 127/87
== END 2017-01-29 16:34 | disposition home or self-care (01) ==
LOC: EDUNIT# 13:56 → ER 13:57
DX: J98.01 Acute bronchospasm (principal); R06.00 Dyspnea, unspecified; Z79.82 Long term (current) use of aspirin; Z79.899 Other long term (current) drug therapy; Z94.2 Lung transplant status
CPT/HCPCS: 36415; 71020; 80053; 85025; 86141; 94640; 96374

== ENCOUNTER 2017-02-01 16:06 | Emergency (ER) | payer MEDICARE ==
[~2017-02-01] VITALS: Ht 177.8 cm; Wt 93.5 kg
[~2017-02-01 16:06] MED LIST changes: +CETI10CA PO; +FLUT9.9S NSEACH; +MONT10TA21 PO; +PRED10TA22 PO
--- NOTE | 2017-02-01 16:41 | ED General ---
General Chief Complaint: General Problems/Pain Stated Complaint: UNK Nursing Triage Note: Patient reports that he was sent here by his PCP to be transferred to a hospital with higher level care. Patient reports that his PCP told him he would be transferred to hospital in [place] and then hospital in [place] would transport him to [place]. Patient reports that he was admitted at this hospital a couple weeks ago and has been on oxygen since. patient reports that he was in this ED on sunday and given script for prednisone. patient denying complaints at this time Nursing Sepsis Screen: No Definite Risk Source of Information: Patient Exam Limitations: No Limitations History of Present Illness Time Seen by Provider: 16:39 Initial Comments Sent ER from his primary care provider's office after being told that he would be transferred to [facility] in [place] for consultation with java performance engineer. Patient has had ongoing worsening shortness of breath for the past 2 months. He was seen here 2 months ago started on oxygen which he was not formerly on. He is 6 years post bilateral lung transplant done at the [facility]. He was scheduled to see transplant specialist February 12. However , he has started on oxygen and does not believe himself to have enough oxygen to make the trip to [place]. His symptoms are no worse today than they have been for the past few months, in fact he feels better but he is also on a steroid taper. His concern is that he may be having rejection. no fevers chills or cough.. He has been on steroids for the past 1.5 weeks. Timing/Duration: 1-2 Days Severity: Moderate Allergies and Home Medications Allergies Coded Allergies: Iodinated Contrast Media - Oral and (Unverified Allergy, Unknown, 01/17/17) Home Medications Amlodipine Besylate 5 Mg Tablet, 5 MG PO DAILY, (Reported) Aspirin 81 Mg Tablet., 81 MG PO DAILY, (Reported) Cetirizine HCl 10 Mg Capsule, 10 MG PO DAILY, #30 Ref 11 Prescribed by: CACHORRO COSTA on 01/29/17 1617 Clonidine HCl 0.1 Mg Tablet, 0.1 MG PO TID, (Reported) LAST FILLED #270 08-25-16 Esomeprazole Magnesium 40 Mg Capsule., 40 MG PO DAILY, (Reported) Fludrocortisone Acetate 0.1 Mg Tab, 0.1 MG PO MoWeFr, (Reported) Fluticasone Propionate 9.9 Ml [place].susp, 2 SPRAYS NSEACH DAILY, #1 Ref 11 Prescribed by: CACHORRO COSTA on 01/29/171616 Folic Acid 1 Mg Tablet, 1 MG PO DAILY, (Reported) Furosemide 40 Mg Tablet, 40 MG PO BID, (Reported) LAST FILLED #180 08-25-16 Gabapentin 100 Mg Capsule, 100 MG PO BID, (Reported) Ipratropium/Albuterol Sulfate 3 Ml Ampul.neb, 3 ML INH RTQ4HR, #60 Prescribed by: ROMY SOUZA on 01/19/17 0958 Labetalol HCl 200 Mg Tablet, 200 MG PO BID, (Reported) Magnesium Oxide 400 Mg Tablet, 400 MG PO BID, (Reported) LAST FILLED #180 08-25-16 Metoprolol Tartrate 50 Mg Tablet, 50 MG PO BID, (Reported) LAST FILLED 08-25-16 #180 Montelukast Sodium 10 Mg Tablet, 10 MG PO DAILY, #30 Prescribed by: CACHORRO COSTA on 01/29/171616 Multivitamin 1 Each Tablet, 1 TAB PO DAILY, (Reported) Prednisone 5 Mg Tablet, 5 MG PO DAILY, (Reported) Prednisone 10 Mg Tab.ds.pk, 10 MG PO DAILY, #42 Take 6 tabs(60mg)daily,decrease by 1 tab(10mg)every other day. Prescribed by: CACHORRO COSTA on 01/29/171616 Sulfamethoxazole/Trimethoprim 1 Each Tablet, 1 TAB PO MoWeFr, (Reported) Tacrolimus 0.5 Mg Capsule, 1 MG PO DAILY, (Reported) TAKES 2 (0.5MG) CAPSULES IN THE MORNING Tacrolimus 0.5 Mg Capsule, 0.5 MG PO HS, (Reported) Voriconazole 200 Mg Tablet, 200 MG PO BID, (Reported) LAST FILLED #60 11-30-16 Constitutional: see HPI EENTM: see HPI Respiratory: see HPI, dyspnea on exertion, short of breath Cardiovascular: no symptoms reported Genitourinary: no symptoms reported Musculoskeletal: no symptoms reported Skin: no symptoms reported Psychiatric/Neurological: No Symptoms Reported Hematologic/Lymphatic: No Symptoms Reported Immunological/Allergic: no symptoms reported Past Oznvpug-Edxfmo-Lzqtcx Hx Patient Social History Alcohol Use: Denies Use Recreational Drug Use: No Smoking Status: Never a Smoker 2nd Hand Smoke Exposure: No Recent Foreign Travel: No Contact w/Someone Who Travel: No Recent Infectious Disease Expo: No Recent Hopitalizations: No Immunizations Up To Date Tetanus Booster (TDap): Unknown Date of Pneumonia Vaccine: Sep 18, 2014 Date of Influenza Vaccine: Jul 19, 2016 Seasonal Allergies Seasonal Allergies: No Surgeries HX Surgeries: Yes (bilateral lung transplant) Surgeries: Lobectomy Respiratory Hx Respiratory Disorders: Yes Respiratory Disorders: Pneumonia Cardiovascular Hx Cardiac Disorders: Yes (pulmonary hypertension status post lung transplant) Cardiac Disorders: Hypertension Neurological Hx Neurological Disorders: No Reproductive System Hx Reproductive Disorders: No Sexually Transmitted Disease: No HIV/AIDS: No Genitourinary Hx Genitourinary Disorders: No Gastrointestinal Hx Gastrointestinal Disorders: No Gastrointestinal Disorders: Gastroesophageal Reflux Musculoskeletal Hx Musculoskeletal Disorders: No Endocrine Hx Endocrine Disorders: No HEENT HX ENT Disorders: No Loss of Vision: Denies Hearing Impairment: Denies Cancer Hx Cancer: No Psychosocial Hx Psychiatric Problems: No Integumentary HX Skin/Integumentary Disorder: No Blood Transfusions Hx Blood Disorders: No Family Medical History Family Medial History: Asthma 19 MOTHER Diabetes mellitus 19 FATHER Hypercholesterolemia 19 FATHER 19 MOTHER G8 BROTHER G8 SISTER Hypertension 19 FATHER 19 MOTHER G8 BROTHER G8 SISTER Thyroid disease G8 SISTER Physical Exam Vital Signs Vital Sign - Last 12Hours 02/01/17 16:20 Temp 97.5 Pulse 93 Resp 18 B/P (MAP) 167/93 Pulse Ox 96 O2 Delivery Nasal Cannula O2 Flow Rate 3.00 Capillary Refill : Less Than 3 Seconds General Appearance: No Apparent Distress, WD/WN Eyes: Bilateral Eye EOMI, Bilateral Eye Normal Inspection, Bilateral Eye PERRL HEENT: PERRL/EOMI, TMs Normal Neck: Full Range of Motion, Normal Inspection Respiratory: No Accessory Muscle Use, No Respiratory Distress Cardiovascular: Regular Rate, Rhythm, Normal Peripheral Pulses Gastrointestinal: Normal Bowel Sounds, Non Tender, Soft Extremity: Normal Capillary Refill, Normal Inspection Neurologic/Psychiatric: Alert, Oriented x3 Skin: Normal Color, Warm/Dry Progress/Results/Core Measures Results/Orders My Orders Orders - JERALD ARRINGTON APRN Cbc With Automated Diff (02/01/17 16:29) Comprehensive Metabolic Panel (02/01/17 16:29) Saline Lock/Iv-Start (02/01/17 16:29) Vital Signs/I&O Vital Sign - Last 12Hours 02/01/17 16:20 Temp 97.5 Pulse 93 Resp 18 B/P (MAP) 167/93 Pulse Ox 96 O2 Delivery Nasal Cannula O2 Flow Rate 3.00 Blood Pressure Mean: 117 Departure Communication Progress Notes 1654-patient refuses chest x-ray 1715- I discussed with the patient that he most certainly does need to see someone from pulmonology and lung transplant. However his issue now is that he does not have a vehicle that will make it that far. He is concerned that he may be having rejection. I advised this is been ongoing for a few weeks and EMS will not function as a taxi service to transport him to a consultation with a lung transplant specialist. I would be happy to call even though at 5 p.m. to see if I could obtain an appointment at [facility] in the upcoming few days. He becomes upset and states "okay no, I'm ready to go home" 1717-I discussed the case with Dr. Dockery who will look into this issue. Impression Impression: Primary Impression: Status post lung transplantation Disposition: 01 HOME, SELF-CARE Condition: Stable Departure-Patient Inst. Decision time for Depature: 17:16 Referrals: YESSICA LOPEZ MD (PCP) Primary Care Physician NO,LOCAL PHYSICIAN (Family) Primary Care Physician Patient Instructions: NO INSTRUCTIONS GIVEN Add. Discharge Instructions: I have discussed the case with Dr. Dockery who oversees [facility]. She will continue your case and see if we can help you in some way. Return to the ER for any fevers or other concerns. All discharge instructions reviewed with patient and/or family. Voiced understanding. Copy Copies To 1: TONY DOCKERY PETER J APRN Feb 01, 2017 16:41
[2017-02-01 17:35] VITALS: BP 167/93
== END 2017-02-01 17:34 | disposition home or self-care (01) ==
LOC: EDUNIT# 16:06 → ER 16:07
DX: R06.02 Shortness of breath (principal); I10 Essential (primary) hypertension; Z79.82 Long term (current) use of aspirin; Z79.899 Other long term (current) drug therapy; Z94.2 Lung transplant status; Z99.81 Dependence on supplemental oxygen
CPT/HCPCS: 99281